=== PATIENT | male | born 1940 | race Caucasian/White ===

== ENCOUNTER 2018-09-24 00:14 | Outpatient (CLI) | payer MEDICARE, OTHER, SELFPAY ==
--- NOTE | 2018-09-24 08:57 | DI.CT_ITS ---
SYMPTOM/DIAGNOSIS: RECURRENT EPISTAXIS, S/P LT MAXILLARY SINUS SURGERY FOR DENTAL IMPLANT, ? POST SURGICAL COMPLICATION, R04.0, Z98.[address]: There is mild mucosal thickening of the floor of the right maxillary sinus and mild mucus retention at the floor of the left maxillary sinus. There is minimal ethmoid mucosal thickening. There are dental implants which create some artifact. The roots of a knik left upper molar tooth extend into the floor of the left maxillary sinus. The post of the adjacent tooth may also extend into the maxillary sinus. The post of a right upper tooth may also extend into the floor of the right maxillary sinus. No areas of bony destruction or air fluid levels are seen. The nasal septum is deviated toward the left. The orbits are unremarkable. The mastoid air cells appear clear. IMPRESSION: Mild maxillary sinus disease. A knik left upper molar tooth extends into the floor of the left maxillary sinus. The posts of two upper dental implants may also extend into the floors of the maxillary sinuses.
== END 2018-09-24 00:34 ==
PROVIDERS: PCP Internal Medicine; Visit Provider Physician Assistant
DX: R04.0 Epistaxis (principal); J32.0 Chronic maxillary sinusitis; Z98.890 Other specified postprocedural states
CPT/HCPCS: 70486

== ENCOUNTER 2018-12-01 12:41 | Outpatient (CLI) | payer MEDICARE, OTHER, SELFPAY ==
--- NOTE | 2018-12-01 14:42 | DI.RAD_ITS ---
SYMPTOMS/DIAGNOSIS: PERSISTENT COUGH, R05 CHEST X-RAY, PA AND LATERAL: Comparison is 10/01/14. The heart size and pulmonary vasculature are stable. There is unchanged scarring in the left mid lung. No focal consolidating infiltrates, effusions or pneumothoraces are identified. Age-appropriate degenerative changes are seen in the spine. IMPRESSION: No acute pulmonary process.
== END 2018-12-01 13:01 ==
PROVIDERS: PCP Internal Medicine; Visit Provider Nurse Practitioner
DX: R05 Cough (principal)
CPT/HCPCS: 71046

== ENCOUNTER 2018-12-21 00:54 | Outpatient (CLI) | payer MEDICARE, OTHER, SELFPAY ==
[2018-12-21] MEDS: Breeza Beverage 473 ML BTL PO ×2 (09:34→09:35)
[2018-12-21] MEDS: Omnipaque 350 MG/ML 50 ML BTL IJ (09:34)
[2018-12-21] MEDS: Omnipaque 350 MG/ML 100 ML BTL IJ (11:09)
--- NOTE | 2018-12-21 11:10 | DI.CT_ITS ---
SYMPTOMS/DIAGNOSIS: LEFT LOWER QUADRANT ABDOMINAL PAIN, R10.32 CT SCAN OF THE ABDOMEN AND PELVIS: CT scan of the abdomen and pelvis was performed following the uneventful administration of intravenous and oral contrast material. There are no priors for comparison. Linear scarring or atelectasis is seen in the lung bases. The heart appears to be mildly enlarged. The liver is normal in size. There are hepatic cysts present. No suspicious solid hepatic masses are seen. The portal, superior mesenteric and splenic veins are patent. The gallbladder is negative. There is no biliary ductal dilatation. The pancreas unremarkable. The spleen is unremarkable. No evidence of an adrenal mass is seen. The kidneys show normal and symmetric enhancement. No evidence of a solid renal mass or obstruction. The urinary bladder is intact. The prostate gland appears mildly enlarged and impinges upon the base of the urinary bladder. Atherosclerosis of the abdominal aorta is noted but no aneurysmal dilatation is seen. No significant abdominal or pelvic adenopathy, ascites or pneumoperitoneum is present. There do appear to be postsurgical changes of a right inguinal hernia repair. There does appear to be a fat-containing left inguinal hernia. Thee is diverticulosis of the sigmoid colon, but no evidence of acute diverticulitis. A normal appendix is visualized. No evidence of bowel obstruction or a bowel inflammatory or infectious process is seen. Degenerative changes are seen in the spine, particularly at the L4-5 and L5-S1 disc levels.. IMPRESSION: 1. No evidence of an acute abdomen. 2. Colonic diverticulosis but no evidence of acute diverticulitis.
== END 2018-12-21 01:14 ==
PROVIDERS: PCP Internal Medicine; Visit Provider Internal Medicine
DX: R10.32 Left lower quadrant pain (principal); K57.30 Diverticulosis of large intestine without perforation or abscess without bleeding; N40.0 Benign prostatic hyperplasia without lower urinary tract symptoms; K40.90 Unilateral inguinal hernia, without obstruction or gangrene, not specified as recurrent
CPT/HCPCS: 74177; J3490; Q9967

== ENCOUNTER 2019-02-12 08:45 | Outpatient (CLI) | payer MEDICARE, OTHER, SELFPAY ==
[2019-02-12 10:00] LABS: Bilirubin Negative (Negative); Blood Trace-intact (Negative); Clarity Clear; Glucose Negative (Negative); Ketones Negative (Negative); Leukocyte Esterase Negative (Negative); Nitrite Negative (Negative); Specific Gravity 1.025 (1.005-1.025); Urobilinogen 0.2 EU/dL (Up TO 0.2)
[2019-02-12 10:04] LABS: Absolute Basophil Count 0.03 k/cumm (0.0-0.2); Absolute Eosinophil Count 0.09 k/cumm (0.0-0.7); Absolute Lymphocyte Count 1.07 k/cumm (1.2-3.4); Absolute Monocyte Count 0.47 k/cumm (0.11-0.7); Absolute Neutrophil Count 2.52 k/cumm (1.2-6.7); Basophils % 0.7; Eosinophils % 2.2; HGB 13.1 g/dL (13.5-17.5); Lymphocytes % 25.6; Mean Corp. HGB Concentration 33.6 g/dL (32.0-36.0); Mean Corpuscular Hemoglobin 32.1 pg (27.0-33.0); Mean Corpuscular Volume 95.6 fL (80-95); Mean Platelet Volume 11.7 fL (8.0-11.0); Monocytes % 11.2; Neutrophils % 60.3; Platelet Count 198 x1000/uL (130-400); RBC 4.08 m/cumm (4.50-6.00); RBC Distribution Width 15.7 % (11.8-14.1); White Blood Cell Count 4.18 k/cumm (4.4-10.8)
[2019-02-12 10:11] LABS: Bacteria Negative HPF (Negative); Crystals Few Amorphous HPF (Negative); Epithelial Cells Few HPF (Negative); RBC 0-2 (0-2); WBC Negative HPF (0-5)
[2019-02-12 10:12] LABS: C & S Indicated? No; Casts Negative LPF (Negative); Mucus Trace (Negative)
[2019-02-12 11:18] LABS: ALT 25 U/L (12-78); AST 17 U/L (15-37); Albumin 3.6 g/dL (3.4-5.0); Alkaline Phosphatase 68 U/L (46-116); Anion Gap 9.6 mmol/L (3-11); BUN 21 mg/dL (7-18); Bilirubin, Total 0.9 mg/dL (0.2-1.0); CO2 28.4 mmol/L (21.0-32.0); CREATININE 0.88 mg/dL (0.70-1.30); Calcium 8.4 mg/dL (8.5-10.1); Chloride 104 mmol/L (98-107); Cholesterol 180 mg/dL (50-200); Glucose 109 mg/dL (70-100); HDL Cholesterol 79 mg/dL (40-60); Potassium 4.3 mmol/L (3.5-5.1); Sodium 142 mmol/L (136-145); TSH 1.65 uIU/mL (0.358-3.74); Total Protein 6.4 g/dL (6.4-8.2)
[2019-02-12 11:20] LABS: Triglyceride < 25 mg/dL (30-150)
[2019-02-14 05:32] LABS: Hemoglobin A1C 5.7 % (4.5-6.2)
[2019-02-14 08:09] LABS: Vitamin D 25 Total 24.9 ng/ml (30-100)
[2019-02-14 08:15] LABS: LDL CHOLESTEROL 90 mg/dL (<100)
== END 2019-02-12 09:05 ==
PROVIDERS: PCP Internal Medicine; Visit Provider Internal Medicine
DX: I10 Essential (primary) hypertension (principal); I48.0 Paroxysmal atrial fibrillation; E55.9 Vitamin D deficiency, unspecified; R73.01 Impaired fasting glucose
CPT/HCPCS: 36415; 80053; 80061; 82306; 83721; 81003; 81015; 83036; 84443; 85025

== ENCOUNTER 2019-02-16 10:19 | Outpatient (CLI) | payer MEDICARE, OTHER, SELFPAY ==
--- NOTE | 2019-02-16 10:32 | DI.RAD_ITS ---
SYMPTOMS/DIAGNOSIS: PAIN RIGHT KNEE: Three views. The articular surfaces appear well maintained. The bones are intact and normally mineralized. There is a small suprapatellar joint effusion. There is a short coiled wire seen in the soft tissues of the knee posteriorly. It is indeterminate whether this is on or within the skin. Please correlate with the patient's physical exam and/or surgical history. IMPRESSION: 1. Small joint effusion. 2. Tiny coiled wire projected over the soft tissues of the posterior knee.
== END 2019-02-16 10:39 ==
PROVIDERS: PCP Internal Medicine; Referring Provider Internal Medicine; Visit Provider Orthopaedic Surgery
DX: M25.561 Pain in right knee (principal); M25.462 Effusion, left knee; M79.5 Residual foreign body in soft tissue; M22.2X1 Patellofemoral disorders, right knee
CPT/HCPCS: 20610; 73562; 99213; 99214; J1040

== ENCOUNTER → 2019-03-31 10:50 | Outpatient (BNVA) | payer MEDICARE, OTHER, SELFPAY | PROVIDERS: Visit Provider Orthopaedic Surgery | DX: M23.91 Unspecified internal derangement of right knee (principal); M25.561 Pain in right knee; Z98.890 Other specified postprocedural states | CPT/HCPCS: 99213 ==

== ENCOUNTER 2019-04-06 01:02 | Outpatient (CLI) | payer MEDICARE, OTHER, SELFPAY ==
--- NOTE | 2019-04-06 14:40 | DI.MRI_ITS ---
SYMPTOM/DIAGNOSIS: INTERNAL DERANGEMENT, PAIN MRI RIGHT KNEE: Routine noncontrast examination was performed. The anterior cruciate ligament is intact. There is increased signal within the ligament and a sprain cannot be excluded. The posterior cruciate ligament is intact, and medial and lateral retinaculum, and popliteus tendon. The lateral meniscus is intact. There is increased signal seen in the posterior horn of the medial meniscus suspicious for a tear. There is thinning of the articular cartilage overlying the medial femoral condyle. There is marrow edema in the medial femoral condyle and a low intensity line paralleling the chondral surface consistent with an osteochondral fracture. There is also thinning of the articular cartilage overlying the patella with underlying marrow edema. There is a small to moderate size joint effusion. There is edema seen in the soft tissues. No focal fluid collection is seen. The muscles show normal signal and size. IMPRESSION: 1. Osteochondral fracture involving the medial femoral condyle 2. Chondromalacia patella 3. Findings suggestive of an ACL sprain and a tear vs degeneration involving the posterior horn of the medial meniscus 4. Small to moderate size joint effusion. Subcutaneous edema around the knee.
== END 2019-04-06 01:22 ==
PROVIDERS: PCP Internal Medicine; Visit Provider Orthopaedic Surgery
DX: M25.561 Pain in right knee (principal); M23.91 Unspecified internal derangement of right knee; M22.41 Chondromalacia patellae, right knee; M25.461 Effusion, right knee; S82.011A Displaced osteochondral fracture of right patella, initial encounter for closed fracture
CPT/HCPCS: 73721

== ENCOUNTER → 2019-04-07 11:47 | Outpatient (BNVA) | payer MEDICARE, OTHER, SELFPAY | PROVIDERS: PCP Internal Medicine; Visit Provider Orthopaedic Surgery | DX: M23.91 Unspecified internal derangement of right knee (principal); Z98.890 Other specified postprocedural states | CPT/HCPCS: 99213 ==

== ENCOUNTER → 2019-05-24 09:21 | Outpatient (BNVA) | payer MEDICARE, OTHER, SELFPAY | PROVIDERS: PCP Internal Medicine; Referring Provider Internal Medicine; Visit Provider Orthopaedic Surgery | DX: M23.91 Unspecified internal derangement of right knee (principal); Z79.01 Long term (current) use of anticoagulants | CPT/HCPCS: 99213 ==

== ENCOUNTER 2019-07-20 14:11 | Outpatient (CLI) | payer MEDICARE, OTHER, SELFPAY ==
--- NOTE | 2019-07-20 13:30 | HPE_ITS ---
Assessment and Plan Assessment and plan (1) Internal derangement of right knee: Status: Chronic Assessment and plan: Plan: Educated patient on surgery covering surgical technique, recovery process, benefits and risks including but not limited to risk of infection, blood clot, damage to soft tissue/blood vessels/nerves in detail. After discussion patient gives verbal understanding of risks and elects to proceed with scheduling surgery. Patient had opportunity to have questions answered to their satisfaction. They will contact office if issues arise. Patient will continue to be scheduled for right knee arthroscopy with medial mensicetomy with Dr. Tamayo. History of Present Illness Narrative: Mr. Decker is a 78-year-old male with pertinent past medical history of paroxysmal atrial fibrillation who presents to clinic for pre-operative visit for scheduled right knee arthroscopy with medial meniscectomy. Patient has been seen in orthopedic clinic several times for his right knee complaints. Previously patient received intra-articular injection on 02/16/2019 which provided significant pain relief for 2 weeks. Unfortunately, patient has had return of intermittent medial based right knee discomfort. As well as a swelling. Pain is most severe at night when it is a constant aching sensation. It is also aggravated when trying to carry any weight such as moving firewood, with prolonged driving, with any twisting motion or weightbearing and when going downhill. His pain is now more severe than it had been and has been giving out on him. Initially patient tried ice as well as applying Aspercreme which provided temporary pain relief. Since that time patient has been treating by restricting activity as well as taking ibuprofen 600 mg as needed. Denies any clicking, locking sensation, numbness or tingling. Due to his continued pain he was offered surgical intervention and elected to proceed. Pertinent Surgical Information Patient reports he has been diagnosed with paroxysmal atrial fibrillation for approximately a year and a half. At this time patient is on apixaban 5 mg twice daily for chronic anticoagulation. Denies any history of myocardial infarction, stroke, chest pain or recent palpitations. Denies past medical history of: stroke, angina, asthma, COPD, sleep apnea, renal issues, liver issues, hepatitis, gastrointestinal issues, ulcers, hyperlipidemia, bleeding disorders, seizures, anxiety, depression, diabetes, autoimmune disorders, thyroid issues Denies prior complications from surgery or anesthesia. Review of Systems Constitutional Constitutional: Denies fever(s), Denies frequent falls and Denies headache(s) Eyes Eyes: Reports change in vision (has been developing left cataract ) ENT Ears, Nose, Mouth, and Throat: Denies dizziness, Denies ear discharge, Denies headache(s), Denies epistaxis, Denies nasal discharge and Denies sore throat Cardiovascular Cardiovascular: Denies chest pain, Denies rapid heart rate, Reports irregular heart rhythm (history of afib; reports maybe 1-2 episodes over the past months), Denies palpitations, Denies dyspnea, Denies dyspnea on exertion, Denies orthopnea, Denies paroxysmal nocturnal dyspnea and Denies slow heart rate Respiratory Respiratory: Reports cough (dry cough for the past few months; denies any recent change), Denies dyspnea, Denies dyspnea on exertion and Denies wheezing Gastrointestinal Gastrointestinal: Denies abdominal pain, Denies melena, Denies hematochezia, Denies constipation, Denies diarrhea, Denies nausea and Denies vomiting Genitourinary Genitourinary: Denies hematuria, Denies dysuria and Denies urinary urgency Musculoskeletal Musculoskeletal: Reports as per HPI, Denies numbness and Denies tingling Neurologic Neurologic: Denies dizziness, Denies frequent falls, Denies headache(s), Denies numbness and Denies tingling Psychiatric Psychiatric: Denies anxiety and Denies depression Endocrine Endocrine: Denies palpitations Allergic/Immunologic Allergic/Immunologic: Denies wheezing [facility] Medical History (Updated 07/20/19 @ 13:39 by Rufina Yi) BPH (benign prostatic hyperplasia) (Chronic) Hypertension (Chronic) Migraine (Chronic) Paroxysmal atrial fibrillation (Chronic) Surgical History (Updated 07/20/19 @ 13:49 by Rufina Yi) Dupuytrens contracture (Acute) April 2015 Hemothorax on left (Acute) Laceration of right forearm (Acute) Left lateral epicondylitis (Acute) Rupture of right Achilles tendon (Acute) Status post hernia repair (Acute) bilateral inguinal repairs April 2015 Social History (Updated 07/20/19 @ 13:50 by Rufina Yi) Smoking/Tobacco Use Status: Never Drug use: Never Current gender identity: male Meds Home Medications and Allergies Home Medications Medication Instructions Recorded Confirmed Type amlodipine 5 mg PO DAILY 05/17/15 03/31/19 History finasteride 5 mg PO HS 05/17/15 02/16/19 History lisinopril 40 mg PO DAILY 05/17/15 03/31/19 History terazosin 5 mg PO HS 05/17/15 03/31/19 History ibuprofen 200 - 600 mg PO PRN PRN 07/27/15 03/31/19 History apixaban 5 mg tablet 5 mg PO BID 02/16/19 03/31/19 History ascorbic acid (vitamin C) 1,000 mg 1 gm PO DAILY tab 02/16/19 03/31/19 History tablet flecainide 150 mg tablet 300 mg PO ONCE PRN tab 02/16/19 03/31/19 History hydrochlorothiazide 12.5 mg tablet 12.5 mg PO DAILY 02/16/19 03/31/19 History metoprolol succinate 50 mg capsule 50 mg PO ONCE PRN dose pk 02/16/19 03/31/19 History sprinkle, ext. release 24 hr Allergies Allergy/AdvReac Type Severity Reaction Status Date / Time No Known Allergies Allergy Unverified 07/20/19 13:50 Exam Const General: cooperative and no acute distress [facility] Head: normal to inspection, normocephalic and atraumatic Ears: external ears normal General nose exam: external nose normal and no nasal discharge Face and sinus: face symmetric Mouth: oral mucosae normal, lip normal, tongue normal and moist mucous membranes Teeth and gingiva: dentition normal Throat: posterior oropharynx normal Eyes General: appearance normal, both eyes and all related structures Pupils: PERRL EOM: EOM intact bilaterally Neck Neck: trachea midline Carotids: normal carotid upstroke Lymphatic: no lymphadenopathy noted Resp Effort & Inspection: normal respiratory effort and able to speak in complete sentences Auscultation: clear to auscultation bilaterally, no rales, no rhonchi and no wheezes Cardio Heart Sounds: S1 normal, S2 normal and no murmurs Pulses: radial pulses present bilaterally GI Palpation: soft, no hepatosplenomegaly and nontender Auscultation: normal bowel sounds Skin General skin exam: no rashes or lesions noted
== END 2019-07-20 14:31 ==
PROVIDERS: PCP Internal Medicine; Visit Provider Orthopaedic Surgery
DX: M23.91 Unspecified internal derangement of right knee (principal); Z01.818 Encounter for other preprocedural examination; I10 Essential (primary) hypertension; I48.0 Paroxysmal atrial fibrillation; Z79.01 Long term (current) use of anticoagulants
CPT/HCPCS: NC

== ENCOUNTER 2019-08-15 07:23 | Day surgery (SDC) | payer MEDICARE, OTHER, SELFPAY ==
[2019-08-15] VITALS (8 sets, daily range): BP systolic 116–151; BP diastolic 59–76; PULSE 52–62; RESP 13–20; TEMP 36.3–36.6; O2SAT 93–97
[2019-08-15] MEDS: Lactated Ringers 1,000 ML 80 ML IV (08:10)
[2019-08-15] MEDS: ceFAZolin 2,000 MG in Normal Saline 100 ML 200 MG IVPB (08:47)
[2019-08-15] MEDS: Bupivacaine 0.5% Pres-Free 30 ML VIAL (09:46)
--- NOTE | 2019-08-15 09:57 | W.PM.DSUDISC ---
Discharge Plan Disposition Patient Disposition: HOME Condition: Good Discharge Details Reason For Visit: Arthroscopy R knee Attending Provider: Chance Tamayo Primary Care Provider: Kenny Vee Home Meds and New Rx's Prescriptions: New hydrocodone-acetaminophen 5-325 mg tablet 1 tab PO Q6H PRN (Reason: pain) Qty: 14 RF: 0 No Action hydrochlorothiazide 12.5 mg tablet 12.5 mg PO DAILY RF: 0 Eliquis 5 mg tablet 5 mg PO BID RF: 0 ascorbic acid (vitamin C) 1,000 mg tablet 1 gm PO DAILY RF: 0 flecainide 150 mg tablet 300 mg PO ONCE PRNRF: 0 metoprolol succinate 50 mg cap,sprinkle,ER 24hr dose pack 50 mg PO ONCE PRNRF: 0 terazosin 5 MG capsule 5 mg PO HS RF: 0 amlodipine 5 MG tablet 5 mg PO DAILY RF: 0 lisinopril 40 MG tablet 40 mg PO DAILY RF: 0 finasteride 5 MG tablet 5 mg PO HS RF: 0 ibuprofen 200 MG tablet 200 - 600 mg PO PRN PRNRF: 0 Discharge Instructions Additional Instructions: Crutches to walk. May put as much weight on R leg as your pain allows. Discontinue crutches when you can step on R leg with minimal pain. Apply cryocuff to R knee continuously overnite tonite. Tomorrow, start to use 4 times/day for 1 hour each time. Keep dressings dry for 48 hours. After 48 hours, may remove dressings, shower and get incisions wet. Leave incisions uncovered when they are dry and sealed. Outpatient physical therapy on Th or Thu for rehab R knee post-arthroscopic partial medial meniscectomy. Take 600 mg (3 tabs of 200 mg) 3 times/day for 2 weeks to reduce swelling and inflammation. Take hydrocodone for breakthru pain, if needed. Follow up with in 2 weeks. Referrals: Chance Tamayo MD [ [facility] STAFF PHYSICIAN] - (f/u in 2 weeks.) Equipment/Supplies: Partial Weight Bearing Crutches Activity:: Activity as Tolerated Remove Dressings/Wound Care:: 48 hours Shower/Bathe:: 48 hours Diet:: As Tolerated Discharge Orders Discharge Orders: Discharge Order (Routine); Ordered 08/15/19 Ordered By: Chance Tamayo DS: Diagnosis Discharge Diagnosis (1) Internal derangement of right knee: Status: Chronic
--- NOTE | 2019-08-15 15:48 | ROE_ITS ---
DATE OF PROCEDURE: August 15, 2019 PREOPERATIVE DIAGNOSIS: Internal derangement, right knee. POSTOPERATIVE DIAGNOSIS: Same due to a torn medial meniscus and synovitis. He also had some mild DJ D of the medial compartment. PROCEDURE: Arthroscopy of the right knee with partial right medial meniscectomy; limited synovectomy and limited chondroplasty of the medial femoral condyle. ANESTHESIA: General, Ezra Weaver CRNA SURGEON: Chance Tamayo M.D. INDICATIONS: This is a 78-year-old white male who has been bothered by right knee pain for over a ye ars' time. This has been managed conservatively. After considerable improvement in his knee, he reg ressed and was bothered by continued pain, mostly on the medial side of his knee. This was interferi ng with his leisure activities initially. It then began to interfere with his activities of daily li ving. Arthroscopy was then recommended to alleviate his symptoms on a more permanent basis. The ris ks and complications of the procedure were explained to the patient in detail preoperatively. PROCEDURE: The patient was taken to the Operating Room on 08/15/19. He was placed supine on the oper ating table and a general anesthetic was administered. The right thigh was placed in the arthroscopi c leg henry and the right knee was then prepped and draped free in the usual sterile fashion. Arthr oscopic portals were established. The knee was inflated with normal saline solution using the arthro scopy pump and then routine arthroscopic examination proceeded. Intraoperative photographs were obta ined to document pertinent findings. Upon entering the medial compartment he was noted to have a degenerative tear of the posterior horn o f the medial meniscus. It was somewhat unstable in that I could displace the fragment anteriorly usi ng a right-angle nerve hook. The amount of meniscus involved was probably less than a third of the m eniscus. There was evidence of some grade 2 OA on the medial femoral condyle; grade 1 OA on the tibi al plateau. Using a high radio frequency electrocautery wand, I debrided and resected the torn porti on of the medial meniscus. I then used the high radio frequency electrocautery wand to perform a lebron ited chondroplasty and excise loose articular cartilage from the medial femoral condyle. I smoothed and contoured the condyle as well. The patient had moderate synovitis in his knee and the high radio frequency electrocautery wand was t hen used to debride the hyperemic and hypertrophic synovium from the intercondylar notch, the medial gutter, the suprapatellar pouch and the lateral gutter. The lateral compartment showed a normal lateral meniscus that was stable to probing with the right-an gle probe. The articular cartilage in the lateral compartment was undamaged and normal in appearance . The patellofemoral joint showed some grade 1 OA of the patella. The patella was tracking well and ce ntered in the trochlea of the femur. At this point the knee was copiously irrigated with saline solu tion using the arthroscopy pump until the outflow was clear. I then instilled into the right knee 20 cc's of 0.5% Marcaine solution along with 4 mg of morphine. The arthroscopy portals were infiltrate d with 0.5% Marcaine solution and were approximated with interrupted #4-0 nylon sutures. Sterile samuel ssings were applied, followed by a light compressive dressing to the right knee. The patient's anest hesia was reversed without complications. He was discharged to recovery in good condition. The patient was later discharged from the Day Surgery Unit when fully recovered from his general anes thesia. He was given instructions to use crutches to walk, weightbearing as tolerated to the right l eg. He may discontinue the crutches as soon as he can step fully on the right leg without pain. He is to apply a CryoCuff to the right knee continuously overnight. Tomorrow he will start to use the C ryoCuff four times a day for an hour each time. He may remove his dressings, shower and get his inci sions wet after 48 hours. He can leave his incisions uncovered when they are dry and sealed. He miriam l take ibuprofen 600 mg p.o. t.i.d. for two weeks to help decrease swelling and inflammation. He was given a prescription for breakthrough pain of Hydrocodone with APAP 5/325, one tablet every six hour s, if needed. He will begin outpatient physical therapy on or Thursday to rehab his right kne e post arthroscopic partial medial meniscectomy. He will follow-up with me in two weeks.
== END 2019-08-15 13:05 | disposition home or self-care (01) ==
PROVIDERS: PCP Internal Medicine; Visit Provider Orthopaedic Surgery
PROC: (CPT 29870; principal; 2019-08-15 08:15)
DX: M23.221 Derangement of posterior horn of medial meniscus due to old tear or injury, right knee (principal); M17.11 Unilateral primary osteoarthritis, right knee; M65.9 Synovitis and tenosynovitis, unspecified; I10 Essential (primary) hypertension
CPT/HCPCS: 29881; J0690; J1100; J1885; J2405

== ENCOUNTER → 2019-08-30 09:09 | Outpatient (BNVA) | payer MEDICARE, OTHER, SELFPAY | PROVIDERS: PCP Internal Medicine; Referring Provider Internal Medicine; Visit Provider Orthopaedic Surgery | DX: Z47.89 Encounter for other orthopedic aftercare (principal); M23.91 Unspecified internal derangement of right knee; I10 Essential (primary) hypertension ==

== ENCOUNTER 2020-02-16 03:30 | Outpatient (CLI) | payer MEDICARE, OTHER, SELFPAY ==
[2020-02-16 14:14] LABS: Absolute Basophil Count 0.03 k/cumm (0.0-0.2); Absolute Eosinophil Count 0.07 k/cumm (0.0-0.7); Absolute Lymphocyte Count 1.21 k/cumm (1.2-3.4); Absolute Monocyte Count 0.58 k/cumm (0.11-0.7); Absolute Neutrophil Count 3.72 k/cumm (1.2-6.7); Basophils % 0.5; Eosinophils % 1.2; HCT 38.5 % (40.0-50.0); Lymphocytes % 21.6; Mean Corp. HGB Concentration 33.8 g/dL (32.0-36.0); Mean Corpuscular Hemoglobin 33.4 pg (27.0-33.0); Mean Platelet Volume 10.8 fL (8.0-11.0); Monocytes % 10.3; Neutrophils % 66.4; Platelet Count 207 x1000/uL (130-400); RBC 3.89 m/cumm (4.50-6.00); RBC Distribution Width 13.7 % (11.8-14.1); White Blood Cell Count 5.61 k/cumm (4.4-10.8)
[2020-02-16 14:17] LABS: Bilirubin Negative (Negative); Blood Small (Negative); Clarity Clear (Clear); Glucose Negative (Negative); Ketones Negative (Negative); Leukocyte Esterase Negative (Negative); Nitrite Negative (Negative); Specific Gravity 1.025 (1.005-1.025); Urobilinogen 0.2 EU/dL (Up TO 0.2)
[2020-02-16 14:31] LABS: Hemoglobin A1C 5.5 % (3.8-5.6)
[2020-02-16 14:32] LABS: Bacteria Few HPF (Negative); C & S Indicated? No; Casts Negative LPF (Negative); Crystals Negative HPF (Negative); Epithelial Cells Rare HPF (Negative); Mucus Moderate (Negative); RBC 0-2 HPF (0-2); WBC 0-2 HPF (0-5)
[2020-02-16 15:19] LABS: ALT 38 U/L (16-63); AST 23 U/L (15-37); Albumin 3.7 g/dL (3.4-5.0); Alkaline Phosphatase 60 U/L (46-116); Anion Gap 5.4 mmol/L (3-11); BUN 18 mg/dL (7-18); CO2 30.6 mmol/L (21.0-32.0); CREATININE 0.85 mg/dL (0.70-1.30); Calcium 8.8 mg/dL (8.5-10.1); Chloride 107 mmol/L (98-107); Cholesterol 173 mg/dL (<200); Glucose 103 mg/dL (74-106); HDL Cholesterol 83 mg/dL (40-60); Potassium 3.9 mmol/L (3.5-5.1); Sodium 143 mmol/L (136-145); TSH 1.11 uIU/mL (0.36-3.74); Total Protein 6.3 g/dL (6.4-8.2)
[2020-02-16 15:20] LABS: Triglyceride < 25 mg/dL (<150)
[2020-02-16 15:30] LABS: LDL CHOLESTEROL 82 mg/dL (<100)
[2020-02-16 15:32] LABS: Vitamin D 25 Total 18.8 ng/ml (30-100)
[2020-02-20 14:49] LABS: Lyme Ab w Rflx to Lyme Confirm Negative (Negative)
== END 2020-02-16 03:50 ==
PROVIDERS: PCP Internal Medicine; Visit Provider Internal Medicine
DX: I10 Essential (primary) hypertension (principal); R73.01 Impaired fasting glucose; E55.9 Vitamin D deficiency, unspecified; M25.50 Pain in unspecified joint; I48.0 Paroxysmal atrial fibrillation
CPT/HCPCS: 36415; 80053; 80061; 82306; 83721; 81003; 81015; 83036; 84443; 85025; 86618

== ENCOUNTER 2020-04-04 12:16 | Outpatient (CLI) | payer MEDICARE, OTHER, SELFPAY ==
--- NOTE | 2020-04-04 12:00 | DI.RAD_ITS ---
EXAM: XR TIB/FIB RT CLINICAL HISTORY: right lower leg muscle atrophy. TECHNIQUE: 2D digital imaging was performed. COMPARISON: No exams were available for comparison FINDINGS: BONES: No acute fracture is present. No bony destructive lesion is seen. Visualized portion of knee a nd ankle joints are unremarkable. SOFT TISSUE: Normal. IMPRESSION: Unremarkable radiographs of the right tibia and fibula. DATA REPOSITORY: RADIATION DOSE DELIVERED:
== END 2020-04-04 12:36 ==
PROVIDERS: PCP Internal Medicine; Referring Provider Internal Medicine; Visit Provider Orthopaedic Surgery
DX: M62.561 Muscle wasting and atrophy, not elsewhere classified, right lower leg (principal); M17.11 Unilateral primary osteoarthritis, right knee; I10 Essential (primary) hypertension
CPT/HCPCS: 99213; 73590

== ENCOUNTER 2020-04-16 01:19 | Outpatient (CLI) | payer MEDICARE, OTHER, SELFPAY ==
--- NOTE | 2020-04-16 06:30 | DI.MRI_ITS ---
EXAM: MR LOWER EXTREMITY RT WO/W CLINICAL HISTORY: muscle atrophy,M62.561. TECHNIQUE: Multiplanar multisequence MRI was performed. FINDINGS: MR examination of proximal half of the leg was performed utilizing multi planer imaging including pre and post contrast T1 fat sat imaging. There are bony signal abnormalities seen of the proximal tibia which appear to be associated with deg enerative changes of the knee. The knee joint is incompletely seen at the margin of the imaging fiel d. No other significant bony signal abnormality is seen in the proximal leg. There is minimally increased signal in the gastrocnemius muscles medially and laterally which is nons pecific. No focal area of increased muscular signal abnormality seen. No fatty replacement of muscu lature of proximal leg. No mass lesion identified. No evidence of enhancement associated with the r egion marked on the lateral aspect of the leg posteriorly. IMPRESSION: Negative MR examination of the proximal leg, degenerative changes of the joints of the knee noted. DATA REPOSITORY:
[2020-04-16] MEDS: Normal Saline Flush 10 ML SYR IVP (10:01)
[2020-04-16] MEDS: Gadoterate meglumine 20 ML VIAL 15 ML IVP (10:02)
== END 2020-04-16 01:39 ==
PROVIDERS: PCP Internal Medicine; Visit Provider Physician Assistant Surgical
DX: M62.561 Muscle wasting and atrophy, not elsewhere classified, right lower leg (principal); M17.11 Unilateral primary osteoarthritis, right knee
CPT/HCPCS: 73720

== ENCOUNTER → 2020-04-24 09:06 | Outpatient (BNVA) | payer MEDICARE, OTHER, SELFPAY | PROVIDERS: PCP Internal Medicine; Referring Provider Internal Medicine; Visit Provider Orthopaedic Surgery | DX: M62.561 Muscle wasting and atrophy, not elsewhere classified, right lower leg (principal); M72.2 Plantar fascial fibromatosis | CPT/HCPCS: 99214 ==

== ENCOUNTER 2020-08-02 10:15 | Outpatient (CLI) | payer MEDICARE, OTHER, SELFPAY ==
--- NOTE | 2020-08-02 09:30 | DI.RAD_ITS ---
EXAM: XR KNEE RT 2V AP,LAT CLINICAL HISTORY: R knee pain. TECHNIQUE: 2D digital imaging was performed. COMPARISON: CR XR knee LT 3V AP,lat,danny from 02/16/2019 FINDINGS: BONES: No acute fracture is present. No bony destructive lesion is seen. There is a small enthesophyt e at the superior patella. JOINTS: There is moderate narrowing of the medial femoral tibial joint space. There is a small joint effusion. Small spurs are seen at the posterior patella. SOFT TISSUE: Normal. IMPRESSION: Mild osteoarthritis of the right knee. Small joint effusion. DATA REPOSITORY: RADIATION DOSE DELIVERED:
== END 2020-08-02 10:35 ==
PROVIDERS: PCP Internal Medicine; Referring Provider Internal Medicine; Visit Provider Orthopaedic Surgery
DX: M17.11 Unilateral primary osteoarthritis, right knee (principal); I10 Essential (primary) hypertension
CPT/HCPCS: 20610; 99213; 73560; J1040

== ENCOUNTER 2020-12-28 02:12 | Outpatient (CLI) | payer MEDICARE, OTHER, SELFPAY ==
[2020-12-28 07:30] LABS: Abs Immature Grans 0.02 10^3/uL (0.0-0.06); Absolute Basophil Count 0.05 10^3/uL (0.0-0.2); Absolute Eosinophil Count 0.09 10^3/uL (0.0-0.7); Absolute Lymphocyte Count 1.02 10^3/uL (1.2-3.4); Absolute Monocyte Count 0.62 10^3/uL (0.1-0.8); Absolute Neutrophil Count 3.54 10^3/uL (1.2-6.7); Basophils % 0.9; Eosinophils % 1.7; HCT 39.3 % (40.0-50.0); HGB 13.3 g/dL (13.5-17.5); Immature Grans % 0.4; Lymphocytes % 19.1; MCHC 33.8 % (32.0-36.0); MCV 100.5 fL (80-95); MPV 10.7 fL (8.0-11.0); Monocytes % 11.6; Neutrophils % 66.3; Nucleated RBC 0 %; Platelet Count 183 10^3/uL (130-400); RBC 3.91 10^6/uL (4.36-5.78); RDW 12.9 % (11.8-14.1); RDW-SD 47.4 fL; WBC 5.34 10^3/uL (4.4-10.8)
[2020-12-28 07:36] LABS: Bilirubin Negative (Negative); Blood Trace-lysed (Negative); Clarity Clear (Clear); Glucose Negative (Negative); Ketones Trace mg/dL (Negative); Leukocyte Esterase Negative (Negative); Nitrite Negative (Negative); Specific Gravity 1.025 (1.005-1.025); Urobilinogen 0.2 EU/dL (Up TO 0.2)
[2020-12-28 07:37] LABS: Hemoglobin A1C 5.4 % (<5.7)
[2020-12-28 08:06] LABS: Bacteria Negative HPF (Negative); C & S Indicated? No; Casts Negative LPF (Negative); Crystals Rare Amorphous HPF (Negative); Epithelial Cells Rare HPF (Negative); Mucus Negative (Negative); WBC 0-2 HPF (0-5)
[2020-12-28 08:34] LABS: ALT 34 U/L (16-63); AST 20 U/L (15-37); Albumin 3.6 g/dL (3.4-5.0); Alkaline Phosphatase 64 U/L (46-116); Anion Gap 5.6 mmol/L (3-11); BUN 13 mg/dL (7-18); Bilirubin, Total 0.8 mg/dL (0.2-1.0); CO2 31.4 mmol/L (21.0-32.0); CREATININE 0.8 mg/dL (0.70-1.30); Calcium 8.5 mg/dL (8.5-10.1); Chloride 107 mmol/L (98-107); Cholesterol 168 mg/dL (<200); Glucose 106 mg/dL (74-106); HDL Cholesterol 86 mg/dL (40-60); Potassium 4.5 mmol/L (3.5-5.1); Sodium 144 mmol/L (136-145); TSH 1.81 uIU/mL (0.36-3.74); Total Protein 6.2 g/dL (6.4-8.2)
[2020-12-28 08:51] LABS: Triglyceride < 25 mg/dL (<150)
[2020-12-28 09:01] LABS: LDL CHOLESTEROL 72 mg/dL (<100)
[2020-12-31 04:59] LABS: Vitamin D 25 Total 29.4 ng/mL (30-100)
== END 2020-12-28 02:13 | disposition home or self-care (01) ==
LOC: LBO 02:13
PROVIDERS: PCP Internal Medicine; Visit Provider Internal Medicine
DX: I10 Essential (primary) hypertension (principal); E55.9 Vitamin D deficiency, unspecified; R73.01 Impaired fasting glucose; I48.0 Paroxysmal atrial fibrillation
CPT/HCPCS: 36415; 80053; 80061; 82306; 83721; 81003; 81015; 83036; 84443; 85025

== ENCOUNTER 2021-06-26 04:09 | Outpatient (CLI) | payer MEDICARE, OTHER, SELFPAY ==
[2021-06-26 09:22] LABS: Abs Immature Grans 0.01 10^3/uL (0.0-0.06); Absolute Basophil Count 0.05 10^3/uL (0.0-0.2); Absolute Eosinophil Count 0.06 10^3/uL (0.0-0.7); Absolute Lymphocyte Count 1.14 10^3/uL (1.2-3.4); Absolute Monocyte Count 0.52 10^3/uL (0.1-0.8); Absolute Neutrophil Count 2.43 10^3/uL (1.2-6.7); Basophils % 1.2; Eosinophils % 1.4; HCT 39.8 % (40.0-50.0); HGB 13.3 g/dL (13.5-17.5); Immature Grans % 0.2; Lymphocytes % 27.1; MCH 33.3 pg (27.0-33.0); MCHC 33.4 % (32.0-36.0); MCV 99.7 fL (80-95); MPV 10.9 fL (8.0-11.0); Monocytes % 12.4; Neutrophils % 57.7; Nucleated RBC 0 %; Platelet Count 187 10^3/uL (130-400); RBC 3.99 10^6/uL (4.36-5.78); RDW 12.9 % (11.8-14.1); RDW-SD 48.1 fL; WBC 4.21 10^3/uL (4.4-10.8)
[2021-06-26 10:17] LABS: Bilirubin Negative (Negative); Blood Trace-intact (Negative); Clarity Clear (Clear); Glucose Negative (Negative); Ketones Negative (Negative); Leukocyte Esterase Negative (Negative); Nitrite Negative (Negative); Specific Gravity 1.025 (1.005-1.025); Urobilinogen 0.2 EU/dL (Up TO 0.2)
[2021-06-26 10:26] LABS: Bacteria Negative HPF (Negative); C & S Indicated? No; Casts Negative LPF (Negative); Crystals Negative HPF (Negative); Epithelial Cells Rare HPF (Negative); Mucus Trace (Negative); WBC Negative HPF (0-5)
[2021-06-26 10:44] LABS: ALT 31 U/L (16-63); AST 19 U/L (15-37); Albumin 3.6 g/dL (3.4-5.0); Alkaline Phosphatase 60 U/L (46-116); Anion Gap 7.6 mmol/L (3-11); BUN 16 mg/dL (7-18); Bilirubin, Total 0.8 mg/dL (0.2-1.0); CO2 29.4 mmol/L (21.0-32.0); CREATININE 0.8 mg/dL (0.70-1.30); Calcium 8.5 mg/dL (8.5-10.1); Calculated LDL 98 mg/dL (<100); Chloride 106 mmol/L (98-107); Cholesterol 184 mg/dL (<200); Glucose 93 mg/dL (74-106); HDL Cholesterol 81 mg/dL (40-60); Potassium 4.1 mmol/L (3.5-5.1); Sodium 143 mmol/L (136-145); TSH 1.49 uIU/mL (0.36-3.74); Total Protein 6.3 g/dL (6.4-8.2); Triglyceride 28 mg/dL (<150)
[2021-06-26 11:11] LABS: Hemoglobin A1C 5.6 % (<5.7)
[2021-06-27 04:52] LABS: Vitamin D 25 Total 31.8 ng/mL (30-100)
== END 2021-06-26 04:10 | disposition home or self-care (01) ==
LOC: LBO 04:09
PROVIDERS: PCP Internal Medicine; Visit Provider Internal Medicine
DX: I48.0 Paroxysmal atrial fibrillation (principal); R73.01 Impaired fasting glucose; E55.9 Vitamin D deficiency, unspecified; I10 Essential (primary) hypertension
CPT/HCPCS: 36415; 80053; 80061; 82306; 81003; 81015; 83036; 84443; 85025

== ENCOUNTER 2021-09-17 13:50 | Emergency (ER) | payer MEDICARE, OTHER, SELFPAY ==
[2021-09-17] VITALS (21 sets, daily range): BP systolic 115–139; BP diastolic 60–79; PULSE 57–79; RESP 13–23; TEMP 36.3–36.7; O2SAT 95–98
--- NOTE | 2021-09-17 14:00 | RT.EKG_ITS ---
APPROVED REPORT Exam: Resting ECG Reason for Exam: chest pain Patient Location: E HR:73 bpm ECG Measurements Heart Rate 73 AXIS OH 66 P 0 QRSd 111 QRS 87 QT 433 T -23 QTc 477 Conclusion Sinus rhythm...normal P axis, V-rate 60- 99 Supraventricular bigeminy...bigeminy string>4 w/ SV complexes Low voltage, extremity leads...all extremity leads <0.5mV Physician: Rate 73, intervals normal, sinus rhythm, supraventricular bigeminy, no STEMI. Q wave is p resent in lead III, inverted T wave is present in lead III, slightly broad S wave in lead I
--- NOTE | 2021-09-17 14:06 | ED.GENADUL_ITS ---
Discharge Plan Disposition Patient Disposition: HOME Condition: Good Discharge Details Clinical Impression: Community acquired pneumonia Primary Care Provider: Kenny Vee ED Provider: Jose Schmitt Home Meds and New Rx's Prescriptions: Continued cholecalciferol (vitamin D3) 25 mcg (1,000 unit) capsule 25 mcg PO DAILY RF: 0 hydrochlorothiazide 12.5 mg tablet 12.5 mg PO DAILY RF: 0 Eliquis 5 mg tablet 5 mg PO BID RF: 0 ascorbic acid (vitamin C) 1,000 mg tablet 1 gm PO DAILY RF: 0 flecainide 150 mg tablet 300 mg PO ONCE PRNRF: 0 metoprolol succinate 50 mg cap,sprinkle,ER 24hr dose pack 50 mg PO ONCE PRNRF: 0 terazosin 5 MG capsule 5 mg PO HS RF: 0 amlodipine 5 MG tablet 5 mg PO DAILY RF: 0 lisinopril 40 MG tablet 40 mg PO DAILY RF: 0 finasteride 5 MG tablet 5 mg PO HS RF: 0 ibuprofen 200 MG tablet 200 - 600 mg PO PRN PRNRF: 0 Discharge Instructions Instructions: Community Acquired Pneumonia (ED) Additional Instructions: At this time you have evidence of mild pneumonia. Please take the antibiotic as directed, please continue the incentive spirometer, and the deep breathing that you are doing. The antibiotic is been sent to your pharmacy. If you notice any worsening of your symptoms, or any new symptoms such as vomiting, diarrhea, fever, chills, shortness of breath, chest pain, numbness, weakness, or fainting , please return immediately to the emergency department for reevaluation. Please follow up with your primary care provider as soon as possible for reassessment and reevaluation. As always, it was a pleasure participating in your medical care today. Referrals: Kenny Vee [Primary Care Provider] - Medical Decision Making This is a 81-year-old male with a past medical history of previous paroxysmal A. fib which is since resolved, hypertension, BPH, who is currently on apixaban, who presents today for evaluation of cough, shortness of breath, fatigue, for the last 4 days. He denies any hemoptysis, pleuritic chest pain, or significant chest pain or chest tightness. He has been monitoring his oxygen and states that his O2 levels get down into the high 80s when he is ambulating, but otherwise remains normal at rest. He does state that his daughter who is living with him who has immunodeficient comorbidities has had a notably nasty virus recently, but this was negative for Covid. Curiosity history of blood clot or coronary artery disease. He has been vaccinated and posted against Covid. No other complaints. No other modifying factors Exam demonstrates a well-appearing male, appearing slightly fatigued, with stable vital signs. Lung sounds are clear. Differential includes Covid, mild viral illness, pneumonia less likely PE or ACS. We will do an ambulatory pulse ox, evaluate for these concerning abnormalities, monitor closely and reassess. Patient does have S1Q3T3, we will get a D-dimer, as well as a proBNP for evaluation of heart strain 5:16 PM Patient's laboratory work-up has returned, no significant white count, D-dimer is elevated, CTA was ordered which shows evidence of small effusions and bilateral mild infiltrate. Covid test was negative, VBG was stable. Electrolytes stable. Troponin EKG stable. No evidence of pulmonary embolism on CT. Thyroid function good. Patient's oxygenation remained excellent here. Ambulatory pulse ox demonstrated no hypoxemia. Patient feels well and would like to go home. We will start the patient on doxycycline for community- acquired pneumonia. We will give him a prescription for home, as well as a small bottle of pills to hold him over until the prescriptions filled. At this time patient is stable for discharge. Discussed red flags which to return. I have extensively reviewed the treatment plan and discharge instructions with the patient. I have addressed all patient concerns at this time. The patient was made aware of what symptoms to monitor for that would warrant a return to the emergency department. Discussed the plan with the patient, they demonstrate verbal understanding and agreement with our assessment and plan at this time. The documentation in this chart was dictated using [employer] dictation software. Please excuse any dictation errors. EKG 14: 12 Rate 73, intervals normal, sinus rhythm, supraventricular bigeminy, no STEMI. Q wave is present in lead III, inverted T wave is present in lead III, slightly broad S wave in lead I FINDINGS: Tracheobronchial tree: Patent where visualized. Pulmonary parenchyma: There are small bilateral pleural effusions and subjacent infiltrates. These infiltrates may represent atelectasis or pneumonia. No architectural distortion. Pulmonary Arteries: No evidence of filling defect to suggest pulmonary emboli. Mediastinum and Delores: Non-specific mildly enlarged mediastinal lymph nodes. The esophagus is unremarkable. Visualized thyroid gland: Unremarkable. Pleura: Please see above. No pneumothorax. Heart: Cardiomegaly. No coronary artery calcifications are seen. No pericardial effusion. Aorta: Thoracic aorta non-dilated. No evidence of dissection. Atherosclerosis. Upper abdomen: Unremarkable. Soft tissues: Unremarkable. Bones: Within normal limits for the patient's age.Old left rib fractures are present. IMPRESSION: 1. No evidence of pulmonary embolism, thoracic aortic dissection or aneurysm. 2. Small bilateral pleural effusions and subjacent infiltrates. 3. Results of this exam have been verbally communicated with provider. HPI General Date/Time Provider Initiated Documentation: 09/17/21 13:51 . HPI Narrative: This is a 81-year-old male with a past medical history of previous paroxysmal A. fib which is since resolved, hypertension, BPH, who is currently on apixaban, who presents today for evaluation of cough, shortness of breath, fatigue, for the last 4 days. He denies any hemoptysis, pleuritic chest pain, or significant chest pain or chest tightness. He has been monitoring his oxygen and states that his O2 levels get down into the high 80s when he is ambulating, but otherwise remains normal at rest. He does state that his daughter who is living with him who has immunodeficient comorbidities has had a notably nasty virus recently, but this was negative for Covid. Curiosity history of blood clot or coronary artery disease. He has been vaccinated and posted against Covid. No other complaints. No other modifying factors Related Data Home Medications Medication Instructions Recorded Confirmed amlodipine 5 mg PO DAILY 05/17/15 09/17/21 finasteride 5 mg PO HS 05/17/15 09/17/21 lisinopril 40 mg PO DAILY 05/17/15 09/17/21 terazosin 5 mg PO HS 05/17/15 09/17/21 ibuprofen 200 - 600 mg PO PRN PRN 07/27/15 09/17/21 apixaban 5 mg tablet 5 mg PO BID 02/16/19 09/17/21 ascorbic acid (vitamin C) 1,000 mg 1 gm PO DAILY tab 02/16/19 09/17/21 tablet flecainide 150 mg tablet 300 mg PO ONCE PRN tab 02/16/19 09/17/21 hydrochlorothiazide 12.5 mg tablet 12.5 mg PO DAILY 02/16/19 09/17/21 metoprolol succinate 50 mg capsule 50 mg PO ONCE PRN dose pk 02/16/19 09/17/21 sprinkle, ext. release 24 hr cholecalciferol (vitamin D3) 25 25 mcg PO DAILY 04/24/20 09/17/21 mcg (1,000 unit) capsule Allergies Allergy/AdvReac Type Severity Reaction Status Date / Time No Known Allergies Allergy Unverified 09/17/21 14:02 General Stated Complaint: RespSymp EYAD: 2 Review of Systems All systems reviewed & are unremarkable except as noted in HPI and below PFSH All Active Problems (Updated 09/17/21 @ 17:13 by Jose Schmitt DO) Community acquired pneumonia (Acute) Plantar fasciitis of left foot (Acute) Right knee DJD (Acute) Muscle wasting and atrophy, not elsewhere classified, right lower leg (Acute) Internal derangement of right knee (Chronic) Migraine (Chronic) BPH (benign prostatic hyperplasia) (Chronic) Hypertension (Chronic) Paroxysmal atrial fibrillation (Chronic) Medical History Hx of fracture of clavicle left Surgical History Dupuytrens contracture April 2015 Hemothorax on left Laceration of right forearm Left lateral epicondylitis Rupture of right Achilles tendon Status post hernia repair bilateral inguinal repairs April 2015 Social History Smoking/Tobacco Use Status: Never Smoking risk assessment performed?: Yes Alcohol Intake: current Alcohol Intake frequency: 0-2 drinks per day Alcohol type: beer and wine Drug use: Never Substance use type: does not use Details: alcohol: t-1, one glass wine Current gender identity: male Do you feel safe at home: Yes Do you feel safe in your relationship?: Yes Exam Narrative Exam Narrative: 1.Const: Well-nourished, Well-developed, appearing stated age 2.Eyes: PERRL, no conjunctival injection, and symmetrical lids. 3.ENT: Atraumatic external nose and ears. Moist MM. Neck: Symmetric, trachea midline, No thyromegaly. 4.CVS: +S1/S2, No murmurs or gallops. Peripheral pulses 2+ and equal in all extremities. Brisk capillary refill in all extremities. 5.RESP: Unlabored respiratory effort. Clear to auscultation bilaterally. No wheezes rales or rhonchi 6.GI: Soft, Nontender/Nondistended, No hepatosplenomegaly. No guarding or rebound. 7.MSK: Normocephalic/Atraumatic, Extremities w/o deformity or ttp No cyanosis or clubbing, Normal movement of all extremities 8.Skin: Warm, Dry. No rashes or lesions. 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 Sensation grossly intact, no focal julissa rologic deficits. 10.Psych: (AAO) x3. Appropriate mood and affect Course Vital Signs Vital signs: Vital Signs Temperature 36.7 C 09/17/21 13:59 Pulse 70 09/17/21 13:59 Respiratory Rate 18 09/17/21 13:59 Pulse Oximetry 98 09/17/21 13:59 Temperature 36.7 C 09/17/21 13:59 Temperature Source Temporal Artery Scan 09/17/21 13:59 Pulse 70 09/17/21 13:59 Respiratory Rate 18 09/17/21 13:59 Respiratory Effort 09/17/21 14:04 Respiratory Depth Normal 09/17/21 14:04 Blood Pressure Position Supine 09/17/21 13:59 Pulse Oximetry 98 09/17/21 13:59 Oxygen Delivery Method Room Air 09/17/21 13:59 Oxygen Flow Rate 0 09/17/21 13:59 Pain Level 0 09/17/21 13:59
[2021-09-17 14:23] LABS: Source Nasal/Nares
[2021-09-17] MEDS: Normal Saline 500 ML IV (14:25)
[2021-09-17 14:29] LABS: Abs Immature Grans 0.02 10^3/uL (0.0-0.06); Absolute Basophil Count 0.04 10^3/uL (0.0-0.2); Absolute Eosinophil Count 0.16 10^3/uL (0.0-0.7); Absolute Lymphocyte Count 0.93 10^3/uL (1.2-3.4); Absolute Monocyte Count 0.89 10^3/uL (0.1-0.8); Absolute Neutrophil Count 4.75 10^3/uL (1.2-6.7); Basophils % 0.6; Eosinophils % 2.4; HCT 35.5 % (40.0-50.0); HGB 11.7 g/dL (13.5-17.5); Immature Grans % 0.3; Lymphocytes % 13.7; MCH 32.6 pg (27.0-33.0); MCV 98.9 fL (80-95); MPV 10.3 fL (8.0-11.0); Monocytes % 13.1; Neutrophils % 69.9; Nucleated RBC 0 %; Platelet Count 210 10^3/uL (130-400); RBC 3.59 10^6/uL (4.36-5.78); RDW 13.2 % (11.8-14.1); RDW-SD 47.4 fL; WBC 6.79 10^3/uL (4.4-10.8)
[2021-09-17 14:30] LABS: BE (Venous) 6 mmol/L (-2-3); HCO3 (Venous) 30 mmol/L (23-28); O2 Sat (Venous) 79 %; TCO2 (Venous) 27 mmol/L (24-29); pCO2 (Venous) 47 mmHg (41-51); pH (Venous) 7.42 (7.31-7.41); pO2 (Venous) 43 mmHg
[2021-09-17 14:52] LABS: ALT 36 U/L (16-63); AST 17 U/L (15-37); Albumin 3.5 g/dL (3.4-5.0); Alkaline Phosphatase 112 U/L (46-116); Anion Gap 7.5 mmol/L (3-11); BUN 16 mg/dL (7-18); Bilirubin, Total 0.5 mg/dL (0.2-1.0); CO2 30.5 mmol/L (21.0-32.0); CREATININE 0.8 mg/dL (0.70-1.30); Calcium 8.7 mg/dL (8.5-10.1); Chloride 104 mmol/L (98-107); Glucose 113 mg/dL (74-106); NT-proBNP 740 pg/mL (<300); Potassium 3.8 mmol/L (3.5-5.1); Sodium 142 mmol/L (136-145); Total Protein 6.7 g/dL (6.4-8.2); Troponin I < 50 ng/L (<or=60)
[2021-09-17 14:56] LABS: TSH (W/Ref FT4) 1.08 uIU/mL (0.36-3.74)
[2021-09-17 15:05] LABS: COVID-19 PCR Negative (Negative)
[2021-09-17 15:12] LABS: D-Dimer 2293 ng/mlFEU (<500)
--- NOTE | 2021-09-17 15:50 | DI.CT_ITS ---
Exam(s) CT CHEST PE CTA EXAM: CT CHEST PE CTA CLINICAL HISTORY: sob, fatigue, notable elevated dimer. TECHNIQUE: Imaging Protocol: Axial CT angiography was performed with multi-slice acquisition and mu lti-planar and/or 3D reconstructions. CONTRAST MATERIAL: Intravenous: Omnipaque 350 Contrast volume:100 mL COMPARISON: CT CT ABDOMEN PELVIS W from 12/21/2018 FINDINGS: Tracheobronchial tree: Patent where visualized. Pulmonary parenchyma: There are small bilateral pleural effusions and subjacent infiltrates. These i nfiltrates may represent atelectasis or pneumonia. No architectural distortion. Pulmonary Arteries: No evidence of filling defect to suggest pulmonary emboli. Mediastinum and Delores: Non-specific mildly enlarged mediastinal lymph nodes. The esophagus is unremar kable. Visualized thyroid gland: Unremarkable. Pleura: Please see above. No pneumothorax. Heart: Cardiomegaly. No coronary artery calcifications are seen. No pericardial effusion. Aorta: Thoracic aorta non-dilated. No evidence of dissection. Atherosclerosis. Upper abdomen: Unremarkable. Soft tissues: Unremarkable. Bones: Within normal limits for the patient's age.Old left rib fractures are present. IMPRESSION: 1. No evidence of pulmonary embolism, thoracic aortic dissection or aneurysm. 2. Small bilateral pleural effusions and subjacent infiltrates. 3. Results of this exam have been verbally communicated with provider. RADIATION DOSE DELIVERED: 358.32mGy.cm Total DLP DATA REPOSITORY: All CT scans at this facility are submitted to the National Radiology Data Registry (NRDR) Dose Index Registry (DIR) with the [employer] (ACR). RADIATION OPTIMIZATION: All CT scans at this facility use at least one of these dose optimization te chniques: automated exposure control; mA and/or kV adjustment per patient size (includes targeted exa ms where dose is matched to clinical indication); or iterative reconstruction.
[2021-09-17] MEDS: Omnipaque 350 MG/ML 100 ML BTL IJ (16:01)
[2021-09-17] MEDS: Doxycycline Hyclate 100 MG, 2 CAPS/BTL PO (17:36)
== END 2021-09-17 17:30 | disposition home or self-care (01) ==
PROVIDERS: Emergency Provider Student in an Organized Health Care Education/Training Program; PCP Internal Medicine
DX: J18.9 Pneumonia, unspecified organism (principal); R06.02 Shortness of breath; R79.89 Other specified abnormal findings of blood chemistry; R07.9 Chest pain, unspecified; I10 Essential (primary) hypertension
CPT/HCPCS: 36415; 71275; 80053; 82805; 87635; 93005; 99285; 83880; 84443; 84484; 85025; 85379; 93010; 99284; J3490

== ENCOUNTER 2021-10-14 00:26 | Outpatient (CLI) | payer MEDICARE, OTHER, SELFPAY ==
--- NOTE | 2021-10-14 08:30 | DI.RAD_ITS ---
Exam(s) XR CHEST 2V PA LATERAL EXAM: XR CHEST 2V PA LATERAL CLINICAL HISTORY: COMMUNITY-ACQUIRED PNEUMONIA, J18.9 TECHNIQUE: 2D digital imaging was performed. COMPARISON: CR XR CHEST 2V PA LATERAL from 12/01/2018 FINDINGS: The heart is enlarged and the aorta tortuous, unchanged. There is mild scarring in the left lung, al so stable. No new superimposed infiltrate, effusion or pulmonary edema is seen. Osteophytes are not ed in the spine. No compression fractures. IMPRESSION: No acute abnormality. DATA REPOSITORY: RADIATION DOSE DELIVERED:
== END 2021-10-14 00:46 ==
PROVIDERS: PCP Internal Medicine; Visit Provider Internal Medicine
DX: J18.8 Other pneumonia, unspecified organism (principal); J98.4 Other disorders of lung
CPT/HCPCS: 71046

== ENCOUNTER 2022-01-03 01:52 | Outpatient (CLI) | payer MEDICARE, OTHER, SELFPAY ==
[2022-01-03 07:30] LABS: Abs Immature Grans 0.01 10^3/uL (0.0-0.06); Absolute Basophil Count 0.05 10^3/uL (0.0-0.2); Absolute Eosinophil Count 0.12 10^3/uL (0.0-0.7); Absolute Lymphocyte Count 1.43 10^3/uL (1.2-3.4); Absolute Monocyte Count 0.73 10^3/uL (0.1-0.8); Absolute Neutrophil Count 3.47 10^3/uL (1.2-6.7); Basophils % 0.9; Eosinophils % 2.1; HCT 41.8 % (40.0-50.0); HGB 13.8 g/dL (13.5-17.5); Immature Grans % 0.2; Lymphocytes % 24.6; MCH 31.9 pg (27.0-33.0); MCV 96.5 fL (80-95); MPV 10.6 fL (8.0-11.0); Monocytes % 12.6; Neutrophils % 59.6; Platelet Count 204 10^3/uL (130-400); RBC 4.33 10^6/uL (4.36-5.78); RDW 14.2 % (11.8-14.1); WBC 5.81 10^3/uL (4.4-10.8)
[2022-01-03 07:32] LABS: Bilirubin Negative (Negative); Blood Trace-intact (Negative); Clarity Clear (Clear); Glucose Negative (Negative); Ketones Negative (Negative); Leukocyte Esterase Negative (Negative); Nitrite Negative (Negative); Specific Gravity 1.025 (1.005-1.025); Urobilinogen 0.2 EU/dL (Up TO 0.2); pH 6.5 (5-8)
[2022-01-03 07:39] LABS: Bacteria Negative HPF (Negative); C & S Indicated? No; Casts Negative LPF (Negative); Crystals Negative HPF (Negative); Epithelial Cells Rare HPF (Negative); Mucus Trace (Negative); RBC 0-2 HPF (0-2); WBC Negative HPF (0-5)
[2022-01-03 07:53] LABS: Hemoglobin A1C 5.9 % (<5.7)
[2022-01-03 09:13] LABS: BUN 15 mg/dL (7-18); CREATININE 0.8 mg/dL (0.70-1.30); Calcium 8.6 mg/dL (8.5-10.1); Glucose 107 mg/dL (74-106)
[2022-01-03 09:14] LABS: ALT 37 U/L (16-63); AST 24 U/L (15-37); Albumin 3.7 g/dL (3.4-5.0); Alkaline Phosphatase 84 U/L (46-116); Anion Gap 4.6 mmol/L (3-11); Bilirubin, Total 0.9 mg/dL (0.2-1.0); CO2 33.4 mmol/L (21.0-32.0); Calculated LDL 120 mg/dL (<100); Chloride 105 mmol/L (98-107); Cholesterol 197 mg/dL (<200); HDL Cholesterol 69 mg/dL (40-60); Sodium 143 mmol/L (136-145); TSH 2.15 uIU/mL (0.36-3.74); Total Protein 6.5 g/dL (6.4-8.2); Triglyceride 40 mg/dL (<150)
[2022-01-06 06:02] LABS: Vitamin D 25 Total 30.6 ng/mL (30-100)
== END 2022-01-03 01:53 | disposition home or self-care (01) ==
LOC: LBO 01:52
PROVIDERS: PCP Internal Medicine; Visit Provider Internal Medicine
DX: I10 Essential (primary) hypertension (principal); R73.01 Impaired fasting glucose; E55.9 Vitamin D deficiency, unspecified
CPT/HCPCS: 36415; 80053; 80061; 82306; 81003; 81015; 83036; 84443; 85025

== ENCOUNTER 2022-02-13 18:38 | Outpatient (REF) | payer MEDICARE, OTHER, SELFPAY ==
[2022-02-13 13:20] LABS: Bilirubin Negative (Negative); Blood Negative (Negative); Clarity Clear (Clear); Glucose Negative (Negative); Ketones Negative (Negative); Leukocyte Esterase Negative (Negative); Nitrite Negative (Negative); Urobilinogen 0.2 EU/dL (Up TO 0.2)
== END 2022-02-13 18:39 | disposition home or self-care (01) ==
LOC: LBN 18:38
PROVIDERS: PCP Internal Medicine; Visit Provider Internal Medicine
DX: R31.9 Hematuria, unspecified (principal)
CPT/HCPCS: 81003; 87086

== ENCOUNTER 2022-06-06 09:52 | Emergency (ER) | payer MEDICARE, OTHER, SELFPAY ==
[2022-06-06 09:56] VITALS: BP 138/70; PULSE 65; RESP 18; TEMP 36.4; O2SAT 99
--- NOTE | 2022-06-06 10:20 | ED.GENADUL_ITS ---
Discharge Plan Disposition Patient Disposition: HOME Condition: Stable Discharge Details Chief Complaint: Cellulitis Clinical Impression: Inguinal hernia Primary Care Provider: Kenny Vee ED Provider: Puneet Sanchez Home Meds and New Rx's Prescriptions: No Action cholecalciferol (vitamin D3) 25 mcg (1,000 unit) capsule 25 mcg PO DAILY hydrochlorothiazide 12.5 mg tablet 12.5 mg PO DAILY Eliquis 5 mg tablet 5 mg PO BID ascorbic acid (vitamin C) 1,000 mg tablet 1 gm PO DAILY metoprolol succinate 50 mg cap,sprinkle,ER 24hr dose pack 25 mg PO ONCE PRN Label Comments: for BP > 100 terazosin 5 MG capsule 5 mg PO HS amlodipine 5 MG tablet 5 mg PO DAILY lisinopril 40 MG tablet 40 mg PO DAILY finasteride 5 MG tablet 5 mg PO HS Discharge Instructions Instructions: Inguinal Hernia (ED) Additional Instructions: Please follow-up with general surgery next week for evaluation of inguinal hernia. Please return to the emergency department for any worsening symptoms such as but not limited to worsening groin pain groin swelling, constipation vomiting abdominal distention or other abnormal symptoms Medical Decision Making 81-year-old male history of bilateral inguinal hernia status post remote repair with mesh, presents with left groin swelling over the past 1 to 2 days, denies nausea vomiting or constipation. Patient is afebrile nontoxic. Soft direct left inguinal hernia on examination, no signs of incarceration or strangulation. Lower suspicion for lymphadenopathy or malignancy. Patient be given referral to general surgery for evaluation for elective repair. Home care instructions and return precautions given HPI General Date/Time Provider Initiated Documentation: 06/06/22 10:01 . HPI Narrative: 81-year-old male history of bilateral inguinal hernias in the past presents with left groin swelling over the past 1 to 2 days mildly uncomfortable denies nausea vomiting or constipation. Had remote bilateral repairs in the past, bilateral mesh Related Data Home Medications Medication Instructions Recorded Confirmed amlodipine 5 mg tablet 5 mg PO DAILY 05/17/15 06/06/22 finasteride 5 mg tablet 5 mg PO HS 05/17/15 06/06/22 lisinopril 40 mg tablet 40 mg PO DAILY 05/17/15 06/06/22 terazosin 5 mg capsule 5 mg PO HS 05/17/15 06/06/22 apixaban 5 mg tablet (Eliquis) 5 mg PO BID 02/16/19 06/06/22 ascorbic acid (vitamin C) 1,000 mg 1 gm PO DAILY 02/16/19 06/06/22 tablet hydrochlorothiazide 12.5 mg tablet 12.5 mg PO DAILY 02/16/19 06/06/22 metoprolol succinate 50 mg capsule 25 mg PO ONCE PRN 02/16/19 09/17/21 sprinkle, ext. release 24 hr cholecalciferol (vitamin D3) 25 25 mcg PO DAILY 04/24/20 06/06/22 mcg (1,000 unit) capsule Allergies Allergy/AdvReac Type Severity Reaction Status Date / Time No Known Allergies Allergy Unverified 06/06/22 10:00 General Stated Complaint: Cellulitis EYAD: 3 Review of Systems Narrative: Review of Systems Constitutional: negative Eyes: negative ENT: negative Cardiovascular: negative Respiratory: negative Gastrointestinal: negative : Groin swelling Musculoskeletal: negative Skin: negative Neurologic: negative Psych: negative PFSH All Active Problems (Updated 06/06/22 @ 10:23 by Puneet Sanchez MD) Inguinal hernia (Acute) Plantar fasciitis of left foot (Acute) Right knee DJD (Acute) Muscle wasting and atrophy, not elsewhere classified, right lower leg (Acute) Internal derangement of right knee (Chronic) Migraine (Chronic) BPH (benign prostatic hyperplasia) (Chronic) Hypertension (Chronic) Paroxysmal atrial fibrillation (Chronic) Medical History Hx of fracture of clavicle left Surgical History Dupuytrens contracture April 2015 Hemothorax on left Laceration of right forearm Left lateral epicondylitis Rupture of right Achilles tendon Status post hernia repair bilateral inguinal repairs April 2015 Social History Smoking/Tobacco Use Status: Never Smoking risk assessment performed?: Yes Alcohol Intake: current Alcohol Intake frequency: 0-2 drinks per day Alcohol type: beer and wine Drug use: Never Substance use type: does not use Details: alcohol: t-1, one glass wine Current gender identity: male Do you feel safe at home: Yes Do you feel safe in your relationship?: Yes Exam Narrative Exam Narrative: Physical Examination General: alert, awake, cooperative, resting comfortably, no acute distress HEENT: normocephalic, atraumatic; PERRL, EOM intact, conjunctiva normal; no nasal discharge; moist mucous membranes, oral and pharyngeal mucosa normal, tolerating secretions Neck: supple, trachea midline; full ROM Chest: normal to inspection Respiratory: normal respiratory effort, speaking in full sentences, clear to auscultation, no wheezing, rales or rhonchi Cardiac: regular rate, regular rhythm, S1S2 intact, no murmurs rubs or gallops GI: abdomen soft, non-tender, non-distended; no palpable mass or hepatosplenomegaly : Left direct inguinal hernia soft, no overlying skin changes Skin: no lesions, rashes or trauma appreciated Neuro: AAOx3, normal speech, moving all extremities Psych: Appropriate mood and affect Course Vital Signs Vital signs: Vital Signs Temperature 36.4 C L 06/06/22 09:56 Pulse 65 06/06/22 09:56 Respiratory Rate 18 06/06/22 09:56 Blood Pressure 138/70 06/06/22 09:56 Pulse Oximetry 99 06/06/22 09:56 Temperature 36.4 C L 06/06/22 09:56 Temperature Source Temporal Artery Scan 06/06/22 09:56 Pulse 65 06/06/22 09:56 Respiratory Rate 18 06/06/22 09:56 Respiratory Effort Non-Labored 06/06/22 10:00 Blood Pressure 138/70 06/06/22 09:56 Blood Pressure Position Sitting 06/06/22 09:56 Pulse Oximetry 99 06/06/22 09:56 Oxygen Delivery Method Room Air 06/06/22 09:56 Oxygen Flow Rate 0 06/06/22 09:56 PAWSS Have you Been Recently Intoxicated or Drunk Within the Last 30 days?: No Have you Ever Experienced Previous Episodes of Alcohol Withdrawal?: No Have you ever Experienced Withdrawal Seizures?: No Have you ever Experienced Delirium Tremens(DT)s?: No Have you ever undergone Alcohol Rehabilitation Treatment (i.e, inpt ot outpatient treatment programs)?: No Have you ever Experienced Blackouts?: No Have you ever Combined Alcohol with other Downers within the last 90 days?: No Have you ever Combined Alcohol with any other Substance of Abuse during the last 90 days?: No Positive Blood Alcohol level on Presentation? [PCS.BAL]: No Evidence of Increased Autonomic Activity (i.e. HR>120, tremor, sweating, agitation, nausea)?: No Result: 0
--- NOTE | 2022-06-06 13:13 | NUR.NOTE ---
Nursing Note: Pt info faxed to general surgery for follow up next week for Inguinal Hernia, Joana, ED
== END 2022-06-06 10:37 | disposition home or self-care (01) ==
PROVIDERS: Emergency Provider Emergency Medicine; PCP Internal Medicine
DX: K40.90 Unilateral inguinal hernia, without obstruction or gangrene, not specified as recurrent (principal)
CPT/HCPCS: 99281; 99284

== ENCOUNTER → 2022-06-18 13:22 | Outpatient (BNVA) | payer MEDICARE, OTHER, SELFPAY | PROVIDERS: PCP Internal Medicine; Referring Provider Internal Medicine; Visit Provider Surgery | DX: I48.91 Unspecified atrial fibrillation (principal); Z79.01 Long term (current) use of anticoagulants; Z98.890 Other specified postprocedural states; K46.9 Unspecified abdominal hernia without obstruction or gangrene | CPT/HCPCS: 99213 ==

== ENCOUNTER 2022-09-26 09:51 | Day surgery (SDC) | payer MEDICARE, OTHER, SELFPAY ==
--- NOTE | 2022-09-25 18:20 | W.ANESPRE ---
General Info Date of Service Date Performed: 09/26/22 Height: 6 ft 2 in Weight: 81.25 kg Body Mass Index (BMI): 23.0 Surgical Procedure: Operation Date: 09/26/22 12:55 Proposed Procedure Side Surgeon p Herniorrhaphy Inguinal w/Mesh Left Roshan Maynard MD Meds Allergies and Home Medications Allergies Allergy/AdvReac Type Severity Reaction Status Date / Time No Known Allergies Allergy Unverified 09/25/22 12:50 Home Medication Medication Instructions Recorded amlodipine 5 mg tablet 10 mg PO DAILY 05/17/15 finasteride 5 mg tablet 5 mg PO HS 05/17/15 lisinopril 40 mg tablet 40 mg PO DAILY 05/17/15 terazosin 5 mg capsule 5 mg PO HS 05/17/15 apixaban 5 mg tablet (Eliquis) 5 mg PO BID 02/16/19 ascorbic acid (vitamin C) 1,000 mg 1 gm PO DAILY 02/16/19 tablet hydrochlorothiazide 12.5 mg tablet 12.5 mg PO DAILY 02/16/19 cholecalciferol (vitamin D3) 25 25 mcg PO DAILY 04/24/20 mcg (1,000 unit) capsule amiodarone 200 mg tablet 1 tab PO HS 09/25/22 Current Visit Medications: Current Medications Generic Name Dose Route Start Last Admin Trade Name Freq PRN Reason Stop Dose Admin Acetaminophen 1,000 mg 09/26/22 06:00 Acetaminophen 500 Mg Tab PO 09/26/22 23:59 PREOP JERMAINE Celecoxib 200 mg 09/26/22 06:00 Celecoxib 200 Mg Cap PO 09/26/22 23:59 PREOP JERMAINE Gabapentin 600 mg 09/26/22 06:00 Gabapentin 300 Mg Cap PO 09/26/22 23:59 PREOP [facility] Ringer's Solution 1,000 mls @ 80 mls/hr 09/26/22 06:00 IV 09/26/22 23:59 INFUSION [facility] IV Miscellaneous Supplies 1 each 09/26/22 06:00 Iv Access IV 09/26/22 23:59 DIRECTED JERMAINE Sodium Chloride 0 ml 09/26/22 06:00 Normal Saline Flush 10 Ml Syr IV 09/26/22 23:59 PRN PRN Sodium Chloride 0 ml 09/26/22 06:00 Normal Saline 10 Ml Vial IJ 09/26/22 23:59 DIRECTED PRN Sterile Water 0 ml 09/26/22 06:00 Water,Injection,Sterile 10 Ml Vial IJ 09/26/22 23:59 DIRECTED PRN PFSH Active Problems Active Problems: Problem Status Onset Code Internal derangement of right knee M23.91 Paroxysmal atrial fibrillation I48.0 Hypertension I10 BPH (benign prostatic hyperplasia) N40.0 Migraine G43.909 Muscle wasting and atrophy, not elsewhere classified, right lower leg M62.561 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 Plantar fasciitis of left foot M72.2 Medical History Medical History Hx of fracture of clavicle left Surgical History Surgical History Dupuytrens contracture April 2015 Hemothorax on left Hx of total knee replacement Laceration of right forearm Left lateral epicondylitis Rupture of right Achilles tendon Status post hernia repair bilateral inguinal repairs April 2015 Tobacco Smoking/Tobacco Use Status: Never Alcohol Alcohol Intake: current Alcohol intake frequency: 0-2 drinks per day Alcohol type: beer and wine Substance Use Substance use: Never Substance use type: does not use Vital Signs and Lab Results Vital Signs Most Recent Vital Signs in EMR: Temp Pulse Resp BP Pulse Ox 36.6 C 62 16 128/60 95 09/26/22 10:14 09/26/22 10:14 09/26/22 10:14 09/26/22 10:14 09/26/22 10:14 Lab Results Blood Type / Crossmatch: No Data to Display Complete Blood Count: No Data to Display Complete Metabolic Panel: No Data to Display Liver Function Panel: No Data to Display Coagulation Panel: No Data to Display Cardiac Panel: No Data to Display Arterial Blood Gas: No Data to Display Venous Blood Gas: No Data to Display Pancreas Panel: No Data to Display Thyroid Panel: No Data to Display Infectious Disease: No Data to Display Blood Cultures: No Data to Display Toxicology Panel: No Data to Display Imaging and Studies Imaging and Studies Study information below may be from another EMR and interpreted by another provider. Please see original notes in EMR for more complete details. EKG Summary: 10/05: sinus. supravent bigem. Echocardiogram Summary: 08/05: LVEF 64%, normal WMA. severe dilation RA. mild to mod AR, mild MR. PAS 33 mmhg. Other Study Summary:: zio 9/22: mostly sinus, frequent episodes of mildy irreg narrow complex tachy, 5 runs ot VT longest at 9 beats. Anesthesia Assessment and Plan Anesthesia History Personal History: No History of Anesthesia Complications Family History: No Family History of Anesthesia Complications Exercise Tolerance Exercise Tolerance: Metabolic Equivalents>4 Pertinent Negatives Pertinent Negatives: No Symptoms of GERD and No Major Pulmonary Symptoms or Complaints Cardiac & Pulmonary Exam Cardiac Exam: Normal S1/S2 Heart Sounds Pulmonary Exam: Clear Bilateral Breath Sounds Implantable Cardiac Device Does patient have a Pacemaker or an ICD?: No Airway Exam Known Difficult Airway: No Mallampati Class: 1 Mouth Opening: Normal (> 3cm) Thyromental Distance: Greater than 3 cm Neck Range of Motion: Full ROM Neck Circumference: Normal Teeth Condition: Normal Dentition ASA Classification ASA Score: ASA 3 Emergency Case?: No NPO Status NPO Status: NPO Clears >2 hours, Solids >8 hours Anesthesia Plan Resuscitation Status: Full Code Anesthesia Technique: General Anesthesia Airway Planned: LMA Monitors Used: Standard Monitors Preoperative Comments:: 82 yo male for hernia repair. Sig PMHx: PAT/aflutter (multiple DCCV, most recent 08/18/22, amiodarone, apixaban), HTN (amlodipine, HCTZ, lisinopril), migraine, thrombophilia, never smoker, occ EtOH. ECHO: EF 64%, mod AI, mild TR, PAS 25-30 mmhg. ETT no ischemia, went into afib. Previous Anes: - LMA 5 - DCCV - prop 120. Plan: GA, preop cocktail (ordered by surgeon).
--- NOTE | 2022-09-25 20:22 | HPE_ITS ---
Assessment and Plan Assessment and plan (1) Status post hernia repair: Assessment and plan: Re-do left inguinal hernia repair today History of Present Illness History of Present Illness Chief Complaint: Inguinal hernia Narrative: He is 81 years old and has a past medical history of bilateral open herniorrhaphies with mesh.? Approximately 1 and half weeks ago, he noticed the acute onset of left-sided groin pain, and associated bulge.? It seems to be a little worse in the evening time after he has been on his feet for a while.? He is able to lay flat.? He denies any nausea, vomiting, or other signs of obstruction.? Although he does not recall the exact date of his last left-sided inguinal hernia repair, he knows that was performed prior to 2019.? Interestin gly, he has a CAT scan of the abdomen and pelvis from 2019 that shows some evidence of a left-sided inguinal hernia. Since his last visit to the office, he did require cardioversion for atrial fibrillation. He tolerated that well. PFSH All Active Problems Internal derangement of right knee (Chronic) Paroxysmal atrial fibrillation (Chronic) Hypertension (Chronic) BPH (benign prostatic hyperplasia) (Chronic) Migraine (Chronic) Muscle wasting and atrophy, not elsewhere classified, right lower leg (Acute) Right knee DJD (Acute) Plantar fasciitis of left foot (Acute) Medical History Hx of fracture of clavicle left Surgical History Dupuytrens contracture April 2015 Hemothorax on left Hx of total knee replacement Laceration of right forearm Left lateral epicondylitis Rupture of right Achilles tendon Status post hernia repair bilateral inguinal repairs April 2015 Social History Smoking/Tobacco Use Status: Never Smoking risk assessment performed?: Yes Alcohol Intake: current Alcohol Intake frequency: 0-2 drinks per day Alcohol type: beer and wine Drug use: Never Substance use type: does not use Current gender identity: male Do you feel safe at home: Yes Do you feel safe in your relationship?: Yes Meds Allergies and Home Medications Allergies Allergy/AdvReac Type Severity Reaction Status Date / Time No Known Allergies Allergy Unverified 09/25/22 12:50 Home Medications Medication Instructions Recorded Confirmed Type amlodipine 5 mg tablet 10 mg PO DAILY 05/17/15 09/26/22 History finasteride 5 mg tablet 5 mg PO HS 05/17/15 09/26/22 History lisinopril 40 mg tablet 40 mg PO DAILY 05/17/15 09/26/22 History terazosin 5 mg capsule 5 mg PO HS 05/17/15 09/26/22 History apixaban 5 mg tablet (Eliquis) 5 mg PO BID 02/16/19 09/25/22 History ascorbic acid (vitamin C) 1,000 mg 1 gm PO DAILY 02/16/19 09/26/22 History tablet hydrochlorothiazide 12.5 mg tablet 12.5 mg PO DAILY 02/16/19 09/26/22 History cholecalciferol (vitamin D3) 25 25 mcg PO DAILY 04/24/20 09/26/22 History mcg (1,000 unit) capsule amiodarone 200 mg tablet 1 tab PO HS 09/25/22 09/26/22 History Exam Narrative Exam Narrative: Physical Examination General: alert, awake, cooperative, resting comfortably, no acute distress HEENT: normocephalic, atraumatic; PERRL, EOM intact, conjunctiva normal; no nasal discharge; moist mucous membranes, oral and pharyngeal mucosa normal, tolerating secretions Neck: supple, trachea midline; full ROM Chest: normal to inspection Respiratory: normal respiratory effort, speaking in full sentences, clear to auscultation, no wheezing, rales or rhonchi Cardiac: regular rate, regular rhythm, S1S2 intact, no murmurs rubs or gallops GI: abdomen soft, non-tender, non-distended; no palpable mass or hepatosplenomegaly : Left direct inguinal hernia soft, no overlying skin changes Skin: no lesions, rashes or trauma appreciated Neuro: AAOx3, normal speech, moving all extremities Psych: Appropriate mood and affect Resp Effort & Inspection: normal respiratory effort and able to speak in complete sentences Auscultation: clear to auscultation bilaterally Cardio Rate: regular rate Rhythm: regular rhythm Heart Sounds: S1 normal and S2 normal GI Other: Reducible left-sided inguinal hernia
--- NOTE | 2022-09-25 20:25 | W.PM.DSUDISC ---
Date of service: 09/26/22 Time of Service: 14:49 Discharge Plan Disposition Patient Disposition: Home Condition: Good Discharge Details Reason For Visit: recurrent left inguianl hernia repair Attending Provider: Roshan Maynard Primary Care Provider: Kenny Vee Home Meds and New Rx's Prescriptions: New tramadol 50 mg tablet 50 mg PO Q8H PRN (Reason: pain) Qty: 9 0RF Rx Instructions: Take 1 tablet by mouth up to every 8 hours if needed for severe pain. Continued cholecalciferol (vitamin D3) 25 mcg (1,000 unit) capsule 25 mcg PO DAILY hydrochlorothiazide 12.5 mg tablet 12.5 mg PO DAILY ascorbic acid (vitamin C) 1,000 mg tablet 1 gm PO DAILY terazosin 5 MG capsule 5 mg PO HS amlodipine 5 MG tablet 10 mg PO DAILY lisinopril 40 MG tablet 40 mg PO DAILY finasteride 5 MG tablet 5 mg PO HS amiodarone 200 mg tablet 1 tab PO HS Label Comments: TAKE TWO TABLETS BY MOUTH EVERY DAY Held Eliquis 5 mg tablet 5 mg PO BID Hold Instructions: Resume on 09/27/22. Discharge Instructions Additional Instructions: 1. Resume all of your medications. 2. Okay to use tylenol and ibuprofen over the counter as needed. Use [] as needed for severe pain. 3. Heating pads and ice packs are fine to use for pain. 4. Leave bandage in place for 24 hours, then remove. 5. Shower with warm soapy water. Pat dry. Use a bandaid if needed to protect your clothing. 6. No soaking or tub baths until I see you in the office. 7. No heavy lifting until I see you in the office. 8.Call the office (or go directly to the emergency room after hours) if you notice any of the following: Develop chills (warm to touch), or if you have a thermometer and your temperature is above 101 Difficulty breathing or difficultly swallowing Persistent vomiting Any bleeding ? exceeding one tablespoon 6. Call your physician if the site where your intravenous was started becomes red, swollen, painful, and warm to touch. Stand Alone Forms: Anesthesia Discharge Inst., Yuki Rosa (DSU) Referrals: Roshan Maynard MD [ [facility] STAFF PHYSICIAN] - Activity:: Activity as Tolerated Diet:: As Tolerated Discharge Orders Discharge Orders: Discharge Order (Routine); Ordered 09/25/22 Ordered By: Roshan Maynard DS: Diagnosis Discharge Diagnosis (1) Status post hernia repair: Asessment and Plan: Tashi we repaired your left-sided inguinal hernia today. Specifically, you had a left-sided indirect inguinal hernia. I closed this down with permanent mesh plug, and reinforce the area surrounding it. I would like you to hold your apixaban 1 more night, and you can restart it on September 27. Please follow the attached discharge instructions, and we look forward to seeing you in the office for routine visit.
--- NOTE | 2022-09-25 20:27 | ROE_ITS ---
Date of service: 09/26/22 Time of Service: 16:15 Operative Note Operative Note DATE OF PROCEDURE: 09/26/22 PRE-OP DIAGNOSIS: Recurrent left inguinal hernia POST-OP DIAGNOSIS: same PROCEDURE: Re-do left inguinal hernia repair SURGEON: Roshan Maynard TRAVELING ELECTRICIAN: Ayaka Martin ANESTHESIA TYPE: General LMA/ETT Refer to Anesthesia Record ESTIMATED BLOOD LOSS: 50 PATHOLOGY: none sent COMPLICATIONS: None Patient was transported to: PACU Patient's condition: stable Implants: PerFix light plug Indications: Tashi is an 82-year-old male with a recurrent left-sided inguinal hernia. It has become progressively symptomatic over the past few months. Findings: Indirect left inguinal hernia Procedure Description: I began by confirming the correct site with the patient, he was induced with general endotracheal anesthesia. I then prepped and draped the left groin in the usual fashion. I established a generous field block using local anesthetic. I began by making an oblique incision over the left inguinal region, adjacent to the area of previous dissection.. I dissected down through the skin to the deep fascia. Next, I incised the fascia along the length of the inguinal canal to the external ring, opening the previous incision site. I carefully dissected the underlying structures. There was an obvious left-sided inguinal hernia anterior to the cord structures. I was not able to identify a discrete ilioinguinal nerve. Once this was complete, I bluntly dissected the shelving edge of the inguinal ligament down towards the pubic tubercle. Here, I encircled all cord structures with a Tamia drain. Next, I began dissecting the specific cord structures. Great care was taken to spare the vas deferens and the blood supply to the testicle. Next, I isolated the hernia sac from the other inguinal structures. I reduced it back to its normal anatomic position, through the internal ring. Although there was a suture in this area, the ring was quite lax, and I was not able to appreciate any permanent mesh in the area of the internal ring. I then used a large mesh plug to obliterate the defect at the internal ring. I fixed in place with interrupted Prolene stitches. The floor of the inguinal canal was largely scarred, and I was able to identify sutures along the shelving edge of the inguinal ligament. The integrity of the floor felt healthy, and I did not appreciate any signs of direct inguinal herniation. With the internal ring obliterated, and no more herniation, I felt this was an adequate repair. It appeared hemostatic. I then closed the anterio r portion of the fascia to reconstruct the front wall of the inguinal canal. I did this with interrupted Vicryl stitches. Once again, I irrigated the surgical field and inspected for hemostasis. Finally, I approximated the superficial fascia and the deep layers of the skin with absorbable suture. Skin was closed with running subcuticular stitch. Bandages were applied, the patient was awakened and transferred to the recovery unit.
[2022-09-26] VITALS (7 sets, daily range): BP systolic 108–128; BP diastolic 39–70; PULSE 60–72; RESP 13–19; TEMP 36.5–36.6; O2SAT 94–97; BMI 23.0
[2022-09-26] MEDS: Gabapentin 300 MG CAP 600 MG PO (10:35)
[2022-09-26] MEDS: Acetaminophen 500 MG TAB 1000 MG PO (10:35)
[2022-09-26] MEDS: Celecoxib 200 MG CAP PO (10:35)
[2022-09-26] MEDS: Lactated Ringers 1,000 ML 80 ML IV (10:47)
[2022-09-26] MEDS: ceFAZolin 2 GM/50 ML BAG IVPB (13:20)
[2022-09-26] MEDS: Bupivacaine 0.5% Pres-Free W/EPI 30 ML VIAL (14:13)
--- NOTE | 2022-09-26 14:42 | W.ANESPOSTOP ---
Postoperative Evaluation Date, Time and Location Date Performed: 09/26/22 Time Performed: 14:42 Patient Location: PACU Vital Signs Most Recent Imported Vital Signs: Most Recent Vital Signs Temp Pulse Resp BP Pulse Ox 36.6 C 62 19 108/39 L 94 09/26/22 14:27 09/26/22 14:37 09/26/22 14:37 09/26/22 14:37 09/26/22 14:37 Pain Score Most Recent Pain Score: Most Recent Pain Score Pain Level 0 09/26/22 10:14 Assessment Mental Status: Awake (Alert & Oriented to Patient Baseline) Airway and Respiratory Function: Patent airway with normal (patient baseline) respiratory exam Cardiovascular Function: Hemodynamically Stable Hydration Status: Adequately Hydrated Nausea & Vomiting: No Nausea or Vomiting Pain: Pain is tolerable per patient Peripheral Nerve Block: Patient did not receive a nerve block
== END 2022-09-26 16:15 | disposition home or self-care (01) ==
PROVIDERS: PCP Internal Medicine; Visit Provider Surgery
PROC: (CPT 49520; principal; 2022-09-26 12:45)
DX: K40.91 Unilateral inguinal hernia, without obstruction or gangrene, recurrent (principal); I48.0 Paroxysmal atrial fibrillation; Z79.01 Long term (current) use of anticoagulants
CPT/HCPCS: 49520; C1781; J0690; J1100; J2405

== ENCOUNTER → 2022-10-09 08:52 | Outpatient (BNVA) | payer MEDICARE, OTHER, SELFPAY | PROVIDERS: PCP Internal Medicine; Referring Provider Internal Medicine; Visit Provider Surgery | DX: Z48.817 Encounter for surgical aftercare following surgery on the skin and subcutaneous tissue (principal); R10.9 Unspecified abdominal pain; W10.8XXA Fall (on) (from) other stairs and steps, initial encounter ==

== ENCOUNTER 2022-12-24 13:15 | Outpatient (REF) | payer MEDICARE, OTHER, SELFPAY ==
[2022-12-24 14:47] LABS: Anion Gap 9.4 mmol/L (3-11); BUN 12 mg/dL (7-18); CO2 28.6 mmol/L (21.0-32.0); CREATININE 0.9 mg/dL (0.70-1.30); Calcium 8.7 mg/dL (8.5-10.1); Chloride 105 mmol/L (98-107); Estimated GFR 86.34 (mL/min/1.73m2); Glucose 115 mg/dL (74-106); Sodium 143 mmol/L (136-145); TSH (W/Ref FT4) 3.22 uIU/mL (0.36-3.74)
== END 2022-12-24 13:16 | disposition home or self-care (01) ==
LOC: NCHCN 13:15
PROVIDERS: PCP Internal Medicine; Visit Provider Internal Medicine
DX: I10 Essential (primary) hypertension (principal); I48.0 Paroxysmal atrial fibrillation
CPT/HCPCS: 80048; 84443

== ENCOUNTER → 2023-07-06 08:49 | Outpatient (BNVA) | payer MEDICARE, OTHER, SELFPAY | PROVIDERS: PCP Internal Medicine; Referring Provider Internal Medicine; Visit Provider Nurse Practitioner Gerontology ==

== ENCOUNTER 2023-07-06 13:29 | Outpatient (CLI) | payer MEDICARE, OTHER, SELFPAY ==
[2023-07-06 17:46] LABS: PSA, Diagnostic 0.3 ng/mL (<=6.5)
== END 2023-07-06 13:30 | disposition home or self-care (01) ==
LOC: LBO 13:29
PROVIDERS: PCP Internal Medicine; Visit Provider Nurse Practitioner Gerontology
DX: N40.1 Benign prostatic hyperplasia with lower urinary tract symptoms (principal); R35.0 Frequency of micturition
CPT/HCPCS: 36415; 51798; 99215; 84153

== ENCOUNTER → 2023-10-06 08:27 | Outpatient (BNVA) | payer MEDICARE, OTHER, SELFPAY | PROVIDERS: PCP Internal Medicine; Referring Provider Internal Medicine; Visit Provider Nurse Practitioner Gerontology | DX: N40.1 Benign prostatic hyperplasia with lower urinary tract symptoms (principal); R35.1 Nocturia | CPT/HCPCS: 99213 ==

== ENCOUNTER 2024-03-04 12:23 | Emergency (ER) | payer MEDICARE, OTHER, SELFPAY ==
--- NOTE | 2024-03-04 12:30 | DI.RAD_ITS ---
Exam(s) XR FOOT RT COMPLETE EXAM: XR FOOT RT COMPLETE CLINICAL HISTORY: R great toe injury. TECHNIQUE: 2D digital imaging was performed. Three views. COMPARISON: No exams were available for comparison FINDINGS: BONES: No acute fracture is present. No bony destructive lesion is seen. Bones appear osteopenic. S mall heel spur. JOINTS: No dislocation present. Degenerative changes. SOFT TISSUE: Normal. IMPRESSION: No acute abnormality DATA REPOSITORY: RADIATION DOSE DELIVERED:
[2024-03-04 12:32] VITALS: BP 151/59; PULSE 62; RESP 16; TEMP 36.9; O2SAT 98
--- NOTE | 2024-03-04 13:45 | ED.GENADUL_ITS ---
Discharge Plan Disposition Patient Disposition: Home Condition: Stable Discharge Details Clinical Impression: Contusion of great toe of right foot Primary Care Provider: Kenny Vee ED Provider: Christian Pichardo Home Meds and New Rx's Prescriptions: Continued cholecalciferol (vitamin D3) 25 mcg (1,000 unit) capsule 25 mcg PO DAILY hydrochlorothiazide 12.5 mg tablet 12.5 mg PO DAILY Eliquis 5 mg tablet 5 mg PO BID Hold Instructions: Resume on 09/27/22. ascorbic acid (vitamin C) 1,000 mg tablet 1 gm PO DAILY terazosin 5 mg capsule 5 mg PO QHS amlodipine 5 MG tablet 10 mg PO DAILY lisinopril 40 MG tablet 40 mg PO DAILY finasteride 5 MG tablet 5 mg PO HS amiodarone 200 mg tablet 1 tab PO HS Patient Comments: TAKE TWO TABLETS BY MOUTH EVERY DAY Discharge Instructions Instructions: Toe Injury Additional Instructions: X-ray does not reveal any fracture. We discussed wearing ricky taping as tolerated as well as a firm soled shoe. You may advance activity as tolerated. Rest, elevate, cool compresses every 2 hours for 20 minutes. Please watch for new or worsening symptoms and return to the ER for any concerns. HPI General Mode of arrival: ambulatory . Date/Time Provider Initiated Documentation: 03/04/24 12:38 . Limitations to Documentation: no limitations . Information obtained by: patient . History of Present Illness 83 year old M presents to the emergency department with the chief complaint of R great toe injury, described as moderate, with intensity rated at 4. Quality is described as aching, and is localized to the right and lower extremity. Patient reports no radiation. Patient started experiencing this day(s) (1) and it has been constant. Immobilization improves symptom(s), Movement worsens symptoms . Patient notes no other symptoms.. Patient did receive the following treatments prior to arrival, other (A single crutch, Aspercreme) Related Data Home Medications Medication Instructions Recorded Confirmed amlodipine 5 mg tablet 10 mg PO DAILY 05/17/15 10/09/22 finasteride 5 mg tablet 5 mg PO HS 05/17/15 10/09/22 lisinopril 40 mg tablet 40 mg PO DAILY 05/17/15 10/09/22 apixaban 5 mg tablet (Eliquis) 5 mg PO BID 02/16/19 10/09/22 ascorbic acid (vitamin C) 1,000 mg 1 gm PO DAILY 02/16/19 10/09/22 tablet hydrochlorothiazide 12.5 mg tablet 12.5 mg PO DAILY 02/16/19 10/09/22 cholecalciferol (vitamin D3) 25 25 mcg PO DAILY 04/24/20 10/09/22 mcg (1,000 unit) capsule amiodarone 200 mg tablet 1 tab PO HS 09/25/22 10/09/22 terazosin 5 mg capsule 5 mg PO QHS 10/06/23 Allergies Allergy/AdvReac Type Severity Reaction Status Date / Time No Known Allergies Allergy Unverified 10/06/23 08:31 General Stated Complaint: Orthopedic EYAD: 4 Review of Systems Constitutional Constitutional: Denies weakness Musculoskeletal Musculoskeletal: Denies numbness, Reports stiffness and Denies tingling Neurologic Neurologic: Denies numbness, Denies tingling and Denies weakness Exam Const General: cooperative, healthy appearing, comfortable and no acute distress Orientation: alert and awake HENMT Head: normal to inspection, normocephalic and atraumatic Mouth: moist mucous membranes Eyes Conjunctivae: conjunctivae normal Neck Neck: normal visual inspection, trachea midline and supple Resp Effort & Inspection: normal respiratory effort and able to speak in complete sentences Cardio Rate: regular rate Rhythm: regular rhythm Skin General skin exam: no rashes or lesions noted Neuro General: patient alert, patient awake, moves all extremities and no focal motor deficits Sensory Exam: no sensory deficits noted Extrem Other: Right great toe with diffuse ecchymosis, mild swelling. Diffuse mild discomfort. No obvious deformity. Skin is intact. No subungual hematoma. The remaining toes and the entire foot examination are unremarkable. Sensation intact throughout. Normal pedal pulse and capillary refill Psych Appearance: grossly normal Mental Status: mental status grossly normal Course Vital Signs Vital signs: Vital Signs Temperature 36.9 C 03/04/24 12:32 Pulse 62 03/04/24 12:32 Respiratory Rate 16 03/04/24 12:32 Blood Pressure 151/59 H 03/04/24 12:32 Pulse Oximetry 98 03/04/24 12:32 Temperature 36.9 C 03/04/24 12:32 Temperature Source Tympanic 03/04/24 12:32 Pulse 62 03/04/24 12:32 Respiratory Rate 16 03/04/24 12:32 Blood Pressure 151/59 H 03/04/24 12:32 Blood Pressure Position Supine 03/04/24 12:32 Pulse Oximetry 98 03/04/24 12:32 Oxygen Delivery Method Room Air 03/04/24 12:32 Oxygen Flow Rate 0 03/04/24 12:32 Pain Level 8 03/04/24 12:32 Comment APAP at 0500; aspercreme on at 0700 03/04/24 12:32 Medical Decision Making 83-year-old gentleman stubbed his right great toe yesterday on a step while wearing Crocs. Woke up this morning and thought that his toe may be slightly angulated, now feels as though it looks more appropriate denies any other injury. Has trialed Aspercreme which helped. Also using 1 crutch for ambulation. Will obtain x-ray to rule out any bony involvement. Right foot x-ray ordered and reviewed, no acute fracture noted. Discussed findings with patient. Patient relieved that there is no fracture. He declines ricky taping or a postop shoe. He has a second crutch at home as needed. We discussed conservative measures. No additional questions or concerns, comfortable discharge. Standard discharge and return precautions were provided. Patient understands, is agreeable to this plan, and has no additional questions or concerns upon discharge. This documentation was generated using [employer] dictation system, please disregard any oddities of phrase or misspellings. Quality:SDOH Health Related Social Needs: No Data to Display PFSH All Active Problems (Updated 03/04/24 @ 14:02 by DAYANARA Sams) Contusion of great toe of right foot (Acute) Fall (on) (from) other stairs and steps, sequela (Acute) BPH loc w urin obs/LUTS (Acute) Inguinal hernia (Acute) Internal derangement of right knee (Chronic) Paroxysmal atrial fibrillation (Chronic) Hypertension (Chronic) BPH (benign prostatic hyperplasia) (Chronic) Migraine (Chronic) Muscle wasting and atrophy, not elsewhere classified, right lower leg (Acute) Right knee DJD (Acute) Plantar fasciitis of left foot (Acute) Medical History Hx of fracture of clavicle left Surgical History Hx of total knee replacement Hemothorax on left Laceration of right forearm Rupture of right Achilles tendon Left lateral epicondylitis Dupuytrens contracture April 2015 Status post hernia repair bilateral inguinal repairs April 2015 Social History Smoking/Tobacco Use Status: Never Smoking risk assessment performed?: Yes Alcohol Intake: current Alcohol Intake frequency: 0-2 drinks per day Alcohol type: beer and wine Drug use: Never Substance use type: does not use Current gender identity: male Do you feel safe at home: Yes Do you feel safe in your relationship?: Yes
[2024-03-04 14:08] VITALS: BP 132/71; PULSE 61; RESP 18; O2SAT 96
== END 2024-03-04 14:09 | disposition home or self-care (01) ==
PROVIDERS: Emergency Provider Physician Assistant; PCP Internal Medicine
DX: S90.111A Contusion of right great toe without damage to nail, initial encounter (principal); W22.8XXA Striking against or struck by other objects, initial encounter
CPT/HCPCS: 99283; 73630

== ENCOUNTER → 2024-03-14 02:50 | Outpatient (CLI) | payer MEDICARE, OTHER, SELFPAY ==
--- NOTE | 2024-03-14 10:55 | DI.RAD_ITS ---
Exam(s) XR CHEST 2V PA LATERAL EXAM: XR CHEST 2V PA LATERAL CLINICAL HISTORY: I48.0 Paryoxysmal Afib, Z79.899 High risk med use, R06.09 FERNANDES,. TECHNIQUE: 2D digital imaging was performed. COMPARISON: CR XR CHEST 2V PA LATERAL from 10/14/2021 FINDINGS: 2 views: Mild cardiomegaly again noted. Mediastinum not widened. Right lung remains clear. Scarring in the left lung base is unchanged from 2021. No new infiltrates nor pleural effusions. IMPRESSION: No acute pulmonary findings.Left-sided scarring appears unchanged from September 2021. DATA REPOSITORY: RADIATION DOSE DELIVERED:
== END ==
PROVIDERS: PCP Internal Medicine; Visit Provider Physician Assistant Medical
DX: I48.0 Paroxysmal atrial fibrillation (principal); Z79.899 Other long term (current) drug therapy; R06.09 Other forms of dyspnea
CPT/HCPCS: 71046

== ENCOUNTER 2024-03-14 04:07 | Outpatient (CLI) | payer MEDICARE, OTHER, SELFPAY ==
[2024-03-14 12:00] LABS: ALT 23 U/L (16-63); AST 18 U/L (15-37); Albumin 3.5 g/dL (3.4-5.0); Alkaline Phosphatase 73 U/L (46-116); Anion Gap 6.3 mmol/L (3-11); BUN 12 mg/dL (7-18); Bilirubin, Total 0.71 mg/dL (0.2-1.0); CO2 30.7 mmol/L (21.0-32.0); CREATININE 0.9 mg/dL (0.70-1.30); Calcium 8.6 mg/dL (8.5-10.1); Chloride 107 mmol/L (98-107); Glucose 108 mg/dL (74-106); Sodium 144 mmol/L (136-145); TSH (W/Ref FT4) 2.41 uIU/mL (0.36-3.74); Total Protein 6.5 g/dL (6.4-8.2)
== END 2024-03-14 04:08 | disposition home or self-care (01) ==
PROVIDERS: PCP Internal Medicine; Visit Provider Physician Assistant Medical
DX: Z79.899 Other long term (current) drug therapy (principal); I48.0 Paroxysmal atrial fibrillation; R06.09 Other forms of dyspnea
CPT/HCPCS: 36415; 80053; 71046; 83735; 84443

== ENCOUNTER 2024-07-25 12:26 | Emergency (ER) | payer MEDICARE, OTHER, SELFPAY ==
[2024-07-25] VITALS (21 sets, daily range): BP systolic 136–158; BP diastolic 70–87; PULSE 54–93; RESP 11–29; TEMP 37; O2SAT 96–99
--- NOTE | 2024-07-25 12:30 | RT.EKG_ITS ---
APPROVED REPORT Exam: Resting ECG Reason for Exam: chest pain Patient Location: E HR:85 bpm ECG Measurements Heart Rate 85 AXIS LA [id number] P [id number] QRSd 114 QRS 157 QT 428 T 7 QTc 523 Conclusion Atrial flutter 85 long QT 523
--- NOTE | 2024-07-25 12:45 | DI.CT_ITS ---
Exam(s) CT RENAL COLIC WO EXAM: CT RENAL COLIC WO CLINICAL HISTORY: L CVA tenderness. TECHNIQUE: Imaging Protocol: Axial computed tomography images with coronal and sagittal reformatted images were created and reviewed. Oral: no COMPARISON: CT CT ABDOMEN PELVIS W from 12/21/2018 FINDINGS: Lung Bases: Small right pleural effusion. Cardiomegaly Liver: Normal density. No suspicious mass. Simple cyst left lobe no follow-up recommended. Gallbladder and biliary tract: No radiodense calculus or biliary dilation. Pancreas: Normal density. No abnormal calcifications or inflammatory process. Spleen: Normal. Kidneys: Normal size, contour and axis. No radiodense stones. No obstructive uropathy. Left parapel padmaja cysts. No suspicious masses seen. Adrenal glands: No masses seen. Lymph nodes: Within normal limits. Vasculature: Abdominal aorta non-dilated. Soft tissues: Unremarkable. Bladder: No wall thickening. No mass or calculi. Bowel: No obstruction or bowel wall thickening. Diverticulosis of the sigmoid. Appendix normal. Peritoneal cavity: No ascites. No focal collection. No mesenteric inflammatory response. Reproductive organs: The prostate is enlarged and impresses on the base of the bladder. Bones: Degenerative changes in the lumbar spine. IMPRESSION: Cardiomegaly and small right pleural effusion. No acute abnormality in the abdomen or pelvis. RADIATION DOSE DELIVERED: 469.29mGy.cm Total DLP 469.29mGy.cm Total DLP DATA REPOSITORY: All CT scans at this facility are submitted to the National Radiology Data Registry (NRDR) Dose Index Registry (DIR) with the [employer] (ACR). RADIATION OPTIMIZATION: All CT scans at this facility use at least one of these dose optimization te chniques: automated exposure control; mA and/or kV adjustment per patient size (includes targeted exa ms where dose is matched to clinical indication); or iterative reconstruction.
--- NOTE | 2024-07-25 13:01 | W.ED.GENAD ---
Discharge Plan Disposition Patient Disposition: Home Condition: Stable Discharge Details Clinical Impression: Chest pain of uncertain etiology Primary Care Provider: Scotty Mortensen ED Provider: Jose Simmons Home Meds and New Rx's Prescriptions: Continued cholecalciferol (vitamin D3) 25 mcg (1,000 unit) capsule 25 mcg PO DAILY hydrochlorothiazide 12.5 mg tablet 12.5 mg PO DAILY Eliquis 5 mg tablet 5 mg PO BID ascorbic acid (vitamin C) 1,000 mg tablet 1 gm PO DAILY terazosin 5 mg capsule 5 mg PO QHS amlodipine 5 MG tablet 10 mg PO DAILY lisinopril 40 MG tablet 40 mg PO DAILY finasteride 5 MG tablet 5 mg PO HS amiodarone 200 mg tablet 1 tab PO HS Patient Comments: TAKE TWO TABLETS BY MOUTH EVERY DAY Discharge Instructions Instructions: Chest Pain, Adult ED Additional Instructions: You were seen in the emergency department for your chest/back pain of uncertain etiology, your cardiac workup is negative, there is no evidence of kidney stone, there is no signs of major infection. You are in well rate controlled atrial fibrillation. Please follow-up with electrophysiology at [facility] [place] [facility] for persistent atrial fibrillation, please return to the emergency department for any tachyarrhythmias, further chest pain, fever, nausea, shortness of breath or weakness or other emergent concerns. Referrals: Kenny Vee [ [facility] STAFF PHYSICIAN] - Discharge Data Discharge Date/Time-TO BE ENTERED AT DEPARTURE: 07/25/24 15:24 HPI General Date/Time Provider Initiated Documentation: 07/25/24 12:43. HPI Narrative: 83 year-old male presents to ED today by POV/ambulating with his with a chief complaint of some L back/axillary pain that disturbed his sleep last night- and he notes he has been in more persistent atrial fibrillation with onset noted last night. Quality described as posterior/axillary back pain, worse with movement, no radiation to crushing chest pain, exertional onset, shortness of breath, dizziness/near syncope, diaphoresis. Severity is described as 3-4 intermittently/10. Palliating factors include nothing specific attempted. Provoking factors include nothing specific. Patient is anticoagulated on Eliquis. Related Data Home Medications ?Medication ?Instructions ?Recorded ?Confirmed amlodipine 5 mg tablet 10 mg PO DAILY 05/17/15 07/25/24 finasteride 5 mg tablet 5 mg PO HS 05/17/15 07/25/24 lisinopril 40 mg tablet 40 mg PO DAILY 05/17/15 07/25/24 apixaban 5 mg tablet (Eliquis) 5 mg PO BID 02/16/19 07/25/24 ascorbic acid (vitamin C) 1,000 mg 1 gm PO DAILY 02/16/19 07/25/24 tablet hydrochlorothiazide 12.5 mg tablet 12.5 mg PO DAILY 02/16/19 07/25/24 cholecalciferol (vitamin D3) 25 25 mcg PO DAILY 04/24/20 07/25/24 mcg (1,000 unit) capsule amiodarone 200 mg tablet 1 tab PO HS 09/25/22 07/25/24 terazosin 5 mg capsule 5 mg PO QHS 10/06/23 07/25/24 Allergies Allergy/AdvReac Type Severity Reaction Status Date / Time No Known Allergies Allergy Verified 07/25/24 12:41 General Stated Complaint: Chest Pain EYAD: 2 Review of Systems All systems reviewed & are unremarkable except as noted in HPI and below Exam Narrative Exam Narrative: GENERAL APPEARANCE: Well-nourished, non-toxic, awake and alert, atraumatic, no acute distress. SKIN: Warm, pink, dry, intact, without rashes/lesions/ulcerations. HEAD: Normocephalic, atraumatic, normal hair distribution for gender/age. EYES: Normal conjunctiva, no exudates on lids/lashes. ENT: Nares patent, no circumoral cyanosis, no facial swelling NECK: Supple, trachea midline, painless cervical ROM. LUNGS/CHEST: Lungs CTA bilaterally-no rhonchi or rales at bases, non-labored respirations, normal A/P diameter, symmetrical expansion, no chest wall deformity, left posterior lower thoracic tenderness without crepitus HEART (CV/PV): Irregular rate and rhythm without murmur, no peripheral edema, no JVD. ABDOMEN: Soft, non-distended, no guarding, no tenderness. MSK: Normal ROM, no swelling/deformity to bilateral UEs or LEs, moving all extremities without weakness, no cyanosis, spine midline without tenderness, normal curvature. NEURO: Mental Status AAOx4 - alert to person, place, time, events No facial droop, no forehead involvement. Motor: No focal weakness - strength 5/5 in bilateral UEs and LEs, proximal and distal, symmetric. Sensory: sensation intact to light touch globally. Gait normal: patient ambulated without ataxia into ED room. PSYCH: euthymic, cooperative, pleasant, appropriate speech Course Vital Signs Vital signs: Vital Signs Temperature 37.0 C 07/25/24 12:36 Pulse 93 H 07/25/24 12:36 Respiratory Rate 16 07/25/24 12:36 Blood Pressure 136/72 07/25/24 12:36 Pulse Oximetry 98 07/25/24 12:36 Temperature 37.0 C 07/25/24 12:36 Pulse 93 H 07/25/24 12:36 Respiratory Rate 16 07/25/24 12:36 Blood Pressure 136/72 07/25/24 12:36 Pulse Oximetry 98 07/25/24 12:36 Pain Level 3 07/25/24 12:36 Medical Decision Making This dictation utilizes [id number] dictation software and may contain unedited grammatical errors. 83 year-old male presents to ED today by POV/ambulating with his with a chief complaint of some L back/axillary pain that disturbed his sleep last night- and he notes he has been in more persistent atrial fibrillation with onset noted last night. Quality described as posterior/axillary back pain, worse with movement, no radiation to crushing chest pain, exertional onset, shortness of breath, dizziness/near syncope, diaphoresis. Severity is described as 3-4 intermittently/10. Palliating factors include nothing specific attempted. Provoking factors include nothing specific. Patients' medical history: Paroxysmal atrial fibrillation, hypertension, BPH, migraine, degenerative joint disease. Family and social history: Eats well, exercises, endorses a lot of housework lately. Pertinent exam findings / vital signs include mild tenderness left thoracic back lateral to the spine, L CVA tenderness, no anterior pleuritic chest pain irregular rate and rhythm of atrial fibrillation, benign abdomen, nontoxic, lungs CTA without respiratory distress. Differential / pathologies of concern include thoracic back spasm, acute coronary syndrome, muscle strain, costochondritis, kidney stone. Diagnostic studies of: -CBC, CMP, serial troponin, BNP, lipase, UA, CT renal, EKG. -CBC shows no actionable abnormality, chronic leukopenia, mild anemia -CMP shows no actionable abnormality -Serial troponins negative -BNP mildly elevated -Lipase within normal limits -UA is benign -His CT renal study shows no acute abnormality of kidney does show small right pleural effusion Interventions of: -None recommend Tylenol and a trial of Voltaren for likely thoracic back strain. ED Course/Assessment/Plan: 83-year-old male presents with left lower thoracic back pain, sometimes radiating to axilla and has been noticing he is in more persistent A-fib with chronic A-fib on Eliquis and amiodarone, patient denies history of kidney stones and this was ruled out by CT renal study, as a small right pleural effusion this is likely unrelated to the area of pain, acute coronary syndrome ruled out, counseled on treatment for thoracic back strain and strict return criteria for any changes to this chest pain with dizziness, near syncope, sweating and shortness of breath on exertion. Findings not consistent with acute coronary syndrome, renal stone, pneumonia or respiratory infection, respiratory distress, PE unlikely and he is on Eliquis. Disposition of chest pain of uncertain etiology. Patient verbalized understanding of the plan and return to ED criteria and engaged in shared decision making. Medical Records Medical records reviewed: Yes I reviewed the patient's medical records. Imaging Data Radiologic Study: Attestation: I personally reviewed and interpreted this imaging study as follows: Imaging: CT Scan Radiologist's impression: EXAM: CT RENAL COLIC WO CLINICAL HISTORY: L CVA tenderness. TECHNIQUE: Imaging Protocol: Axial computed tomography images with coronal and sagittal reformatted images were created and reviewed. Oral: no COMPARISON: CT CT ABDOMEN PELVIS W from 12/21/2018 FINDINGS: Lung Bases: Small right pleural effusion. Cardiomegaly Liver: Normal density. No suspicious mass. Simple cyst left lobe no follow-up recommended. Gallbladder and biliary tract: No radiodense calculus or biliary dilation. Pancreas: Normal density. No abnormal calcifications or inflammatory process. Spleen: Normal. Kidneys: Normal size, contour and axis. No radiodense stones. No obstructive uropathy. Left parapelvic cysts. No suspicious masses seen. Adrenal glands: No masses seen. Lymph nodes: Within normal limits. Vasculature: Abdominal aorta non-dilated. Soft tissues: Unremarkable. Bladder: No wall thickening. No mass or calculi. Bowel: No obstruction or bowel wall thickening. Diverticulosis of the sigmoid. Appendix normal. Peritoneal cavity: No ascites. No focal collection. No mesenteric inflammatory response. Reproductive organs: The prostate is enlarged and impresses on the base of the bladder. Bones: Degenerative changes in the lumbar spine. IMPRESSION: Cardiomegaly and small right pleural effusion. No acute abnormality in the abdomen or pelvis. Lab Data Lab results reviewed: Yes I reviewed the patient's lab results. Labs: Laboratory Tests Range/Units 07/25/24 07/25/24 07/25/24 13:00 13:55 14:09 WBC (4.4-10.8) 10^3/uL 4.28 L RBC (4.36-5.78) 10^6/uL 3.78 L Hgb (13.5-17.5) g/dL 12.4 L Hct (40.0-50.0) % 36.9 L MCV (80-95) fL 98 H MCH (27.0-33.0) pg 32.8 MCHC (32.0-36.0) % 33.6 RDW (11.8-14.1) % 14.3 H Plt Count (130-400) 10^3/uL 197 MPV (8.0-11.0) fL 10.1 Immature Gran % % 0.2 Neutrophils % % 60.5 Lymphocytes % % 22.0 Monocytes % % 15.0 Eosinophils % % 1.4 Basophils % % 0.9 Nucleated RBC % (0.0-0.3) % 0.0 Absolute Neutrophils (1.2-6.7) 10^3/uL 2.59 Absolute Lymphocytes (1.2-3.4) 10^3/uL 0.94 L Absolute Monocytes (0.1-0.8) 10^3/uL 0.64 Absolute Eosinophils (0.0-0.7) 10^3/uL 0.06 Absolute Basophils (0.0-0.2) 10^3/uL 0.04 Sodium (136-145) mmol/L 144 Potassium (3.5-5.1) mmol/L 4.1 Chloride (98-107) mmol/L 105 Carbon Dioxide (21.0-32.0) mmol/L 29.7 Anion Gap (3-11) mmol/L 9.3 BUN (7-18) mg/dL 14 Creatinine (0.70-1.30) mg/dL 0.9 Est GFR (CKD-EPI 2020) (mL/min/1.73m2) 85.80 Glucose (74-106) mg/dL 101 Calcium (8.5-10.1) mg/dL 9.0 Magnesium (1.8-2.4) mg/dL 2.1 Total Bilirubin (0.2-1.0) mg/dL 1.03 H AST (15-37) U/L 18 ALT (16-63) U/L 24 Alkaline Phosphatase (46-116) U/L 91 Troponin I (<or=76) ng/L 7 9 NT-Pro-B Natriuret Pep (<300) pg/mL 650 H Total Protein (6.4-8.2) g/dL 7.1 Albumin (3.4-5.0) g/dL 3.7 Lipase (16-77) U/L 21 Urine Color (Yellow) Yellow Urine Clarity (Clear) Clear Urine pH (5-8) 7.0 Ur Specific [place] (1.005-1.025) 1.020 Urine Protein (Neg-Trace) mg/dL Negative Urine Ketones (Negative) mg/dL 15 H Urine Blood (Negative) Negative Urine Nitrite (Negative) Negative Urine Bilirubin (Negative) Negative Urine Urobilinogen (Up to 0.2) mg/dL 0.2 Ur Leukocyte Esterase (Negative) Negative Urine Glucose (Negative) mg/dL Negative Quality:SDOH Health Related Social Needs: No Data to Display PFSH All Active Problems (Updated 07/25/24 @ 15:03 by DAYANARA Bates) Chest pain of uncertain etiology (Acute) Fall (on) (from) other stairs and steps, sequela (Acute) BPH loc w urin obs/LUTS (Acute) Inguinal hernia (Acute) Internal derangement of right knee (Chronic) Paroxysmal atrial fibrillation (Chronic) Hypertension (Chronic) BPH (benign prostatic hyperplasia) (Chronic) Migraine (Chronic) Muscle wasting and atrophy, not elsewhere classified, right lower leg (Acute) Right knee DJD (Acute) Plantar fasciitis of left foot (Acute) Medical History Hx of fracture of clavicle left Surgical History Hx of total knee replacement Hemothorax on left Laceration of right forearm Rupture of right Achilles tendon Left lateral epicondylitis Dupuytrens contracture April 2015 Status post hernia repair bilateral inguinal repairs April 2015 Social History Smoking/Tobacco Use Status: Never Smoking risk assessment performed?: Yes Alcohol Intake: current Alcohol Intake frequency: 0-2 drinks per day Alcohol type: beer and wine Drug use: Never Substance use type: does not use Current gender identity: male Do you feel safe at home: Yes Do you feel safe in your relationship?: Yes
[2024-07-25 13:08] LABS: Abs Immature Grans 0.01 10^3/uL (0.0-0.06); Absolute Basophil Count 0.04 10^3/uL (0.0-0.2); Absolute Eosinophil Count 0.06 10^3/uL (0.0-0.7); Absolute Lymphocyte Count 0.94 10^3/uL (1.2-3.4); Absolute Monocyte Count 0.64 10^3/uL (0.1-0.8); Absolute Neutrophil Count 2.59 10^3/uL (1.2-6.7); Basophils % 0.9 %; Eosinophils % 1.4 %; HCT 36.9 % (40.0-50.0); HGB 12.4 g/dL (13.5-17.5); Immature Grans % 0.2 %; MCH 32.8 pg (27.0-33.0); MCHC 33.6 % (32.0-36.0); MCV 98 fL (80-95); MPV 10.1 fL (8.0-11.0); Neutrophils % 60.5 %; Platelet Count 197 10^3/uL (130-400); RBC 3.78 10^6/uL (4.36-5.78); RDW 14.3 % (11.8-14.1); RDW-SD 51.4 fL; WBC 4.28 10^3/uL (4.4-10.8)
[2024-07-25 13:26] LABS: ALT 24 U/L (16-63); AST 18 U/L (15-37); Albumin 3.7 g/dL (3.4-5.0); Alkaline Phosphatase 91 U/L (46-116); Anion Gap 9.3 mmol/L (3-11); BUN 14 mg/dL (7-18); Bilirubin, Total 1.03 mg/dL (0.2-1.0); CO2 29.7 mmol/L (21.0-32.0); CREATININE 0.9 mg/dL (0.70-1.30); Chloride 105 mmol/L (98-107); Glucose 101 mg/dL (74-106); Lipase 21 U/L (16-77); Magnesium 2.1 mg/dL (1.8-2.4); NT-proBNP 650 pg/mL (<300); Potassium 4.1 mmol/L (3.5-5.1); Sodium 144 mmol/L (136-145); Total Protein 7.1 g/dL (6.4-8.2); Troponin I 7 ng/L (<or=76)
[2024-07-25 14:09] LABS: Bilirubin Negative (Negative); Blood Negative (Negative); Clarity Clear (Clear); Glucose Negative (Negative); Ketones 15 mg/dL (Negative); Leukocyte Esterase Negative (Negative); Nitrite Negative (Negative); Urobilinogen 0.2 mg/dL (Up to 0.2)
[2024-07-25] MEDS: Lidocaine 5% Patch 1 PATCH TP (14:19)
[2024-07-25] MEDS: Acetaminophen 500 MG TAB 1000 MG PO (14:19)
[2024-07-25 14:35] LABS: Troponin I 9 ng/L (<or=76)
== END 2024-07-25 15:24 | disposition home or self-care (01) ==
PROVIDERS: Emergency Provider Physician Assistant; PCP Family Medicine
DX: R07.9 Chest pain, unspecified (principal); I48.0 Paroxysmal atrial fibrillation; I10 Essential (primary) hypertension; Z79.01 Long term (current) use of anticoagulants
CPT/HCPCS: 80053; 83690; 93005; 99285; 74176; 81003; 83735; 83880; 84484; 85025; 93010; 99284

== ENCOUNTER → 2024-10-27 13:12 | Outpatient (BNVA) | payer MEDICARE, OTHER, SELFPAY | PROVIDERS: PCP Family Medicine; Referring Provider Family Medicine; Visit Provider Podiatrist | DX: L60.3 Nail dystrophy (principal); B35.1 Tinea unguium | CPT/HCPCS: 99214 ==

== ENCOUNTER 2024-12-26 12:31 | Emergency (ER) | payer MEDICARE, OTHER, SELFPAY ==
--- NOTE | 2024-12-26 12:30 | RT.EKG_ITS ---
APPROVED REPORT Exam: Resting ECG Reason for Exam: tachycardia Patient Location: E HR:53 bpm ECG Measurements Heart Rate 53 AXIS NV 210 P -4 QRSd 121 QRS 126 QT 492 T 43 QTc 462 Conclusion Sinus bradycardia...rate< 60 Nonspecific intraventricular conduction delay...QRSd >115mS, not LBBB/RBBB
[2024-12-26 12:43] VITALS: BP 160/76; PULSE 56; RESP 20; TEMP 36.6; O2SAT 94
[2024-12-26 12:49] VITALS: BP 160/76; PULSE 56; RESP 20; TEMP 36.6; O2SAT 94
--- NOTE | 2024-12-26 13:15 | DI.CT_ITS ---
Exam(s) CT BRAIN NECK CTA EXAM: CT BRAIN NECK CTA CLINICAL HISTORY: WAN post cardioversion. TECHNIQUE: Imaging Protocol: Axial CT angiography was performed with multi-slice acquisition and mu lti-planar and/or 3D reconstructions. CONTRAST MATERIAL: Intravenous: Omnipaque 350 Contrast volume:75 mL FINDINGS: CTA Neck W: Aortic arch anatomy: The aortic arch anatomy is conventional and there is no significant stenosis at the origin of the great vessels off of the aortic arch. No intimal flap evident. Anterior circulation: Both common carotid arteries ascend with normal luminal diameters. At the level the carotid bulbs and proximal internal carotid arteries there is minimal plaque without hemodynamically significant stenosis evident. Internal carotid arteries in the upper neck appear unremarkable as well as in the skull base-carotid canals. Posterior circulation: Both vertebral arteries originate in conventional fashion off of the subclavian arteries and there is no obvious stenosis at the origin of the vertebral arteries. Both vertebral arteries exhibit normal luminal diameters within the foramen transversarium. Normal diameters. No intraluminal thrombus nor dissection evident. Both vertebral arteries contribute to the formation of the basilar artery at the skull base. OTHER: No evidence of acute hematomas in the neck nor other significant incidental findings in soft t issues of the neck. CTA Brain W: Anterior circulation: Both internal carotid arteries are patent in the skull base-carotid canals as well as within the cave rnous sinuses. The supraclinoid aspects of the ICAs are patent. Both A1 segments are patent as are the anterior cer ebral arteries and there is no evidence of aneurysm at the level of the anterior communicating artery . Both middle cerebral arteries are patent with no evidence of significant stenosis nor intraluminal th rombus. There also no aneurysms of these vessels. Posterior circulation: The basilar artery ascends in the midline. Distally it gives off patent bilateral superior cerebella r arteries. Above this level the basilar artery terminates as patent bilateral posterior cerebral arteries. There is no evidence of aneurysm at the tip of the basilar artery nor elsewhere in the [id number] is. CT BRAIN: There is no evidence of intracranial hemorrhage, mass effect, or shift of midline structures. There are no extra-axial fluid collections. Ventricles are not enlarged or shifted. There are no ring enh ancing lesions in the brain and no abnormal meningeal enhancement. There is symmetrical periventricular hypodensity consistent with chronic small vessel disease. No ev idence of acute infarct. IMPRESSION: 1. Patent carotid arteries in the neck. No hemodynamically significant stenosis. 2. Patent vertebral arteries. 3. Patent intracranial arteries. 4. See separate chest CTA report Called by myself to ER 12/26/2024 at 2:40 p.m. RADIATION DOSE DELIVERED: 2,178.89mGy.cm Total DLP DATA REPOSITORY: All CT scans at this facility are submitted to the National Radiology Data Registry (NRDR) Dose Index Registry (DIR) with the [employer] (ACR). RADIATION OPTIMIZATION: All CT scans at this facility use at least one of these dose optimization te chniques: automated exposure control; mA and/or kV adjustment per patient size (includes targeted exa ms where dose is matched to clinical indication); or iterative reconstruction.
--- NOTE | 2024-12-26 13:26 | DI.CT_ITS ---
Exam(s) CT CHEST PE CTA EXAM: CT CHEST PE CTA CLINICAL HISTORY: shortness of breath post cardioversion. TECHNIQUE: Imaging Protocol: CT angiography of the chest was performed using pulmonary embolus patricia col. Multi planar reconstructions were performed. CONTRAST MATERIAL: Intravenous: Omnipaque 350 Contrast volume: 75 cc COMPARISON: CT CT CHEST PE CTA from 09/17/2021 FINDINGS: CHEST: PULMONARY ARTERIES: There are no intraluminal filling defects to suggest acute pulmonary emboli. LUNGS: There is mild infiltrate in the right lower lobe posterior basal segment and a lesser amount o f infiltrate also evident in the posterior basal segment of the left lower lobe. There is no pleural effusion on the left side. There is a small pleural effusion on the right side.. MEDIASTINUM: No evidence of sternal fracture or mediastinal hematoma. xVisualized thyroid unremarkab le.No hilar nor mediastinal adenopathy. No axillary adenopathy. CARDIAC: Cardiomegaly. No pericardial effusion. Diameter of the ascending thoracic aorta is within normal limits. No obvious dissection in the arch evident. There is no significant shift of the inte rventricular septum. PARTIALLY VISUALIZED UPPERMOST ABDOMEN: No obvious findings OSSEOUS: No significant osseous lesions.. IMPRESSION: 1. No evidence of acute pulmonary emboli. 2. There is infiltrate in the posterior basal segments of both lower lobes. There is a small pleural effusion on the right side. 3. Cardiomegaly. No pericardial effusion. No obvious aortic dissection. No evidence of mediastinal hematoma. RADIATION DOSE DELIVERED: 65.45mGy.cm Total DLP DATA REPOSITORY: All CT scans at this facility are submitted to the National Radiology Data Registry (NRDR) Dose Index Registry (DIR) with the [employer] (ACR). RADIATION OPTIMIZATION: All CT scans at this facility use at least one of these dose optimization te chniques: automated exposure control; mA and/or kV adjustment per patient size (includes targeted exa ms where dose is matched to clinical indication); or iterative reconstruction.
[2024-12-26 13:48] LABS: Abs Immature Grans 0.01 10^3/uL (0.0-0.06); Absolute Basophil Count 0.05 10^3/uL (0.0-0.2); Absolute Eosinophil Count 0.06 10^3/uL (0.0-0.7); Absolute Lymphocyte Count 0.79 10^3/uL (1.2-3.4); Absolute Monocyte Count 0.74 10^3/uL (0.1-0.8); Absolute Neutrophil Count 4.72 10^3/uL (1.2-6.7); Basophils % 0.8 %; Eosinophils % 0.9 %; HCT 34.4 % (40.0-50.0); HGB 11.2 g/dL (13.5-17.5); Immature Grans % 0.2 %; Lymphocytes % 12.4 %; MCH 30.9 pg (27.0-33.0); MCHC 32.6 % (32.0-36.0); MCV 95 fL (80-95); MPV 10.8 fL (8.0-11.0); Monocytes % 11.6 %; Neutrophils % 74.1 %; Platelet Count 195 10^3/uL (130-400); RBC 3.62 10^6/uL (4.36-5.78); RDW 14.6 % (11.8-14.1); RDW-SD 50.9 fL; WBC 6.37 10^3/uL (4.4-10.8)
[2024-12-26] MEDS: Omnipaque 350 MG/ML 100 ML BTL IJ (13:55)
[2024-12-26] MEDS: Omnipaque 350 MG/ML 50 ML BTL IJ (13:56)
[2024-12-26] MEDS: Normal Saline - Diluent 50 ML VIAL IJ ×2 (13:57→13:58)
[2024-12-26 14:20] LABS: ALT 26 U/L (16-63); AST 17 U/L (15-37); Albumin 3.7 g/dL (3.4-5.0); Alkaline Phosphatase 105 U/L (46-116); Anion Gap 7.5 mmol/L (3-11); BUN 12 mg/dL (7-18); CO2 30.5 mmol/L (21.0-32.0); CREATININE 0.9 mg/dL (0.70-1.30); Chloride 106 mmol/L (98-107); Estimated GFR 85.27 (mL/min/1.73m2); Glucose 102 mg/dL (74-106); NT-proBNP 634 pg/mL (<300); Potassium 3.9 mmol/L (3.5-5.1); Sodium 144 mmol/L (136-145); TSH (W/Ref FT4) 2.73 uIU/mL (0.36-3.74); Troponin I 9 ng/L (<or=76)
[2024-12-26 15:21] LABS: Troponin I 10 ng/L (<or=76)
[2024-12-26 15:22] VITALS: RESP 18
--- NOTE | 2024-12-26 15:42 | ED.GENADUL_ITS ---
Discharge Plan Disposition Patient Disposition: Home Condition: Stable Discharge Details Clinical Impression: Pneumonia, Headache Primary Care Provider: Scotty Mortensen ED Provider: Diana Hill Home Meds and New Rx's Prescriptions: New cefuroxime axetil 500 mg tablet 500 mg PO BID Qty: 10 0RF doxycycline hyclate 100 mg capsule 100 mg PO BID Qty: 10 0RF prednisone 20 mg tablet 40 mg PO DAILY Qty: 6 0RF Continued cholecalciferol (vitamin D3) 25 mcg (1,000 unit) capsule 25 mcg PO DAILY hydrochlorothiazide 12.5 mg tablet 12.5 mg PO DAILY Eliquis 5 mg tablet 5 mg PO BID ascorbic acid (vitamin C) 1,000 mg tablet 1 gm PO DAILY terazosin 5 mg capsule 5 mg PO QHS ketoconazole 2 % cream 1 applic topical DAILY Qty: 120 6RF Rx Instructions: Apply to toenails once daily amlodipine 5 MG tablet 10 mg PO DAILY lisinopril 40 MG tablet 40 mg PO DAILY finasteride 5 MG tablet 5 mg PO HS amiodarone 200 mg tablet 1 tab PO HS Patient Comments: TAKE TWO TABLETS BY MOUTH EVERY DAY Discharge Instructions Instructions: Community-Acquired Pneumonia, Adult (DC) Additional Instructions: Please follow-up with your primary care physician tomorrow, take antibiotics and prednisone as prescribed and also writing for an inhaler 2 puffs every 4-6 hours as needed for cough, wheeze, shortness of breath Please return earlier should you have any new or worsening complaints Referrals: Scotty Mortensen MD [Primary Care Provider] - 1 day HPI General Date/Time Provider Initiated Documentation: 12/26/24 13:06 . HPI Narrative: 84-year-old male with hypertension, hypoxia, headache, and dyspnea since last Thursday. Underwent cardioversion at [facility] last Thursday, tolerated well. Pulse within normal limits. Reports nocturnal headaches and dyspnea, improving in the morning. No weakness, dizziness, respiratory symptoms, fever, chills, urinary complaints, speech or sensation changes. No history of coagulopathy. Consistently taking Eliquis and amiodarone. Related Data Home Medications ?Medication ?Instructions ?Recorded ?Confirmed amlodipine 5 mg tablet 10 mg PO DAILY 05/17/15 12/26/24 finasteride 5 mg tablet 5 mg PO HS 05/17/15 12/26/24 lisinopril 40 mg tablet 40 mg PO DAILY 05/17/15 12/26/24 apixaban 5 mg tablet (Eliquis) 5 mg PO BID 02/16/19 12/26/24 ascorbic acid (vitamin C) 1,000 mg 1 gm PO DAILY 02/16/19 12/26/24 tablet hydrochlorothiazide 12.5 mg tablet 12.5 mg PO DAILY 02/16/19 12/26/24 cholecalciferol (vitamin D3) 25 25 mcg PO DAILY 04/24/20 12/26/24 mcg (1,000 unit) capsule amiodarone 200 mg tablet 1 tab PO HS 09/25/22 12/26/24 terazosin 5 mg capsule 5 mg PO QHS 10/06/23 12/26/24 ketoconazole 2 % topical cream 1 applic topical DAILY #120 grams 10/27/24 12/26/24 cefuroxime axetil 500 mg tablet 500 mg PO BID #10 tabs 12/26/24 doxycycline hyclate 100 mg capsule 100 mg PO BID #10 caps 12/26/24 prednisone 20 mg tablet 40 mg (2 x 20 mg) PO DAILY #6 tabs 12/26/24 Previous Rx's ?Medication ?Instructions ?Recorded ketoconazole 2 % topical cream 1 applic topical DAILY #120 grams 10/27/24 cefuroxime axetil 500 mg tablet 500 mg PO BID #10 tabs 12/26/24 doxycycline hyclate 100 mg capsule 100 mg PO BID #10 caps 12/26/24 prednisone 20 mg tablet 40 mg (2 x 20 mg) PO DAILY #6 tabs 12/26/24 Allergies Allergy/AdvReac Type Severity Reaction Status Date / Time No Known Allergies Allergy Verified 12/26/24 12:50 General Stated Complaint: SOB EYAD: 3 Exam Narrative Exam Narrative: Patient is alert and oriented he has crackles at bases of lungs send in no acute distress, left peripheral edema 2+ right 1+, nontender neurovascularly intact no abdominal tenderness speaking complete sentences sinus bradycardia no respiratory distress Course Vital Signs Vital signs: Vital Signs Temperature 36.6 C 12/26/24 12:43 Pulse 56 L 12/26/24 12:43 Respiratory Rate 20 12/26/24 12:43 Blood Pressure 160/76 H 12/26/24 12:43 Pulse Oximetry 94 12/26/24 12:43 Temperature 36.6 C 12/26/24 12:49 Pulse 56 L 12/26/24 12:49 Respiratory Rate 18 12/26/24 15:22 Respiratory Effort Normal, Non-Labored 12/26/24 15:22 Respiratory Depth Normal 12/26/24 15:22 Respiratory Pattern Normal 12/26/24 15:22 Blood Pressure 160/76 H 12/26/24 12:49 Blood Pressure Position Sitting 12/26/24 12:49 Pulse Oximetry 94 12/26/24 12:49 Oxygen Delivery Method Room Air 12/26/24 12:49 Oxygen Flow Rate 0 12/26/24 12:49 Lab/Test Results Lab/Test Results: Laboratory Tests Range/Units 12/26/24 12/26/24 12/26/24 13:40 13:40 13:40 WBC (4.4-10.8) 10^3/uL 6.37 RBC (4.36-5.78) 10^6/uL 3.62 L Hgb (13.5-17.5) g/dL 11.2 L Hct (40.0-50.0) % 34.4 L MCV (80-95) fL 95 MCH (27.0-33.0) pg 30.9 MCHC (32.0-36.0) % 32.6 RDW (11.8-14.1) % 14.6 H Plt Count (130-400) 10^3/uL 195 MPV (8.0-11.0) fL 10.8 Immature Gran % % 0.2 Neutrophils % % 74.1 Lymphocytes % % 12.4 Monocytes % % 11.6 Eosinophils % % 0.9 Basophils % % 0.8 Nucleated RBC % (0.0-0.3) % 0.0 Absolute Neutrophils (1.2-6.7) 10^3/uL 4.72 Absolute Lymphocytes (1.2-3.4) 10^3/uL 0.79 L Absolute Monocytes (0.1-0.8) 10^3/uL 0.74 Absolute Eosinophils (0.0-0.7) 10^3/uL 0.06 Absolute Basophils (0.0-0.2) 10^3/uL 0.05 Sodium (136-145) mmol/L 144 Potassium (3.5-5.1) mmol/L 3.9 Chloride (98-107) mmol/L 106 Carbon Dioxide (21.0-32.0) mmol/L 30.5 Anion Gap (3-11) mmol/L 7.5 BUN (7-18) mg/dL 12 Creatinine (0.70-1.30) mg/dL 0.9 Est GFR (CKD-EPI 2020) (mL/min/1.73m2) 85.27 Glucose (74-106) mg/dL 102 Calcium (8.5-10.1) mg/dL 9.0 Magnesium (1.8-2.4) mg/dL 2.0 Total Bilirubin (0.2-1.0) mg/dL 1.0 AST (15-37) U/L 17 ALT (16-63) U/L 26 Alkaline Phosphatase (46-116) U/L 105 Troponin I (<or=76) ng/L 9 Cancelled NT-Pro-B Natriuret Pep (<300) pg/mL 634 H Total Protein (6.4-8.2) g/dL 7.0 Albumin (3.4-5.0) g/dL 3.7 TSH (0.36-3.74) uIU/mL 2.73 Cancelled Range/Units 12/26/24 14:40 WBC (4.4-10.8) 10^3/uL RBC (4.36-5.78) 10^6/uL Hgb (13.5-17.5) g/dL Hct (40.0-50.0) % MCV (80-95) fL MCH (27.0-33.0) pg MCHC (32.0-36.0) % RDW (11.8-14.1) % Plt Count (130-400) 10^3/uL MPV (8.0-11.0) fL Immature Gran % % Neutrophils % % Lymphocytes % % Monocytes % % Eosinophils % % Basophils % % Nucleated RBC % (0.0-0.3) % Absolute Neutrophils (1.2-6.7) 10^3/uL Absolute Lymphocytes (1.2-3.4) 10^3/uL Absolute Monocytes (0.1-0.8) 10^3/uL Absolute Eosinophils (0.0-0.7) 10^3/uL Absolute Basophils (0.0-0.2) 10^3/uL Sodium (136-145) mmol/L Potassium (3.5-5.1) mmol/L Chloride (98-107) mmol/L Carbon Dioxide (21.0-32.0) mmol/L Anion Gap (3-11) mmol/L BUN (7-18) mg/dL Creatinine (0.70-1.30) mg/dL Est GFR (CKD-EPI 2020) (mL/min/1.73m2) Glucose (74-106) mg/dL Calcium (8.5-10.1) mg/dL Magnesium (1.8-2.4) mg/dL Total Bilirubin (0.2-1.0) mg/dL AST (15-37) U/L ALT (16-63) U/L Alkaline Phosphatase (46-116) U/L Troponin I (<or=76) ng/L 10 NT-Pro-B Natriuret Pep (<300) pg/mL Total Protein (6.4-8.2) g/dL Albumin (3.4-5.0) g/dL TSH (0.36-3.74) uIU/mL Medical Decision Making Initial Assessment: 84-year-old male presenting with elevated blood pressure, hypoxia, headache, and shortness of breath. Status post cardioversion at [facility] on Thursday of last week, tolerated well. Pulse has been within normal limits. Denies weakness, dizziness, respiratory symptoms, fever, chills, urinary complaints, speech or sensation changes. Denies history of coagulopathy. Took Eliquis consistently with cardioversion, still on amiodarone. ED Course: - CT head reviewed, no acute process, no significant sinus abnormalities noted. -I performed ambulatory trial in the room, patient does not desat below 95% has mild increased work of breathing but is not tachycardic and is in no respiratory distress and stable for discharge home on cefuroxime and doxycycline to cover atypicals - Patient ambulated with a very steady gait. - Use inhaler, 2 puffs every 4-6 hours as needed for cough, wheeze, shortness of breath. - Take antibiotics and prednisone as prescribed. Patient is very concerned about his blood pressure will need to list to be rechecked by his primary care physician in the outpatient setting Final Assessment: Patient is stable for discharge. CT head shows no acute process. Use inhaler as needed, take antibiotics and prednisone as prescribed. Clinical Impression: - Hypertension - Hypoxia - Headache - Dyspnea Disposition: - Discharge - Follow-Up: PCP tomorrow [facility] Components Evaluation: - Number of Differential Diagnoses or Management Options: Hypertension, Hypoxia, Headache, Dyspnea - Amount and Complexity of Data Reviewed: CT head reviewed - Risk of Complication and Morbidity or Mortality: Elevated blood pressure, hypoxia, headache, shortness of breath Quality:SDOH Health Related Social Needs: No Data to Display PFSH All Active Problems (Updated 12/26/24 @ 15:20 by DAYANARA Barker) Headache (Acute) Pneumonia (Acute) Dystrophia unguium (Acute) Onychomycosis (Acute) Fall (on) (from) other stairs and steps, sequela (Acute) BPH loc w urin obs/LUTS (Acute) Inguinal hernia (Acute) Internal derangement of right knee (Chronic) Paroxysmal atrial fibrillation (Chronic) Hypertension (Chronic) BPH (benign prostatic hyperplasia) (Chronic) Migraine (Chronic) Muscle wasting and atrophy, not elsewhere classified, right lower leg (Acute) Right knee DJD (Acute) Plantar fasciitis of left foot (Acute) Medical History Hx of fracture of clavicle left Surgical History Hx of total knee replacement Hemothorax on left Laceration of right forearm Rupture of right Achilles tendon Left lateral epicondylitis Dupuytrens contracture April 2015 Status post hernia repair bilateral inguinal repairs April 2015 Social History Smoking/Tobacco Use Status: Never Smoking risk assessment performed?: Yes Alcohol Intake: current Alcohol Intake frequency: 0-2 drinks per day Alcohol type: beer and wine Drug use: Never Substance use type: does not use Current gender identity: male Do you feel safe at home: Yes Do you feel safe in your relationship?: Yes PAWSS Have you Been Recently Intoxicated or Drunk Within the Last 30 days?: No Have you Ever Experienced Previous Episodes of Alcohol Withdrawal?: No Have you ever Experienced Withdrawal Seizures?: No Have you ever Experienced Delirium Tremens(DT)s?: No Have you ever undergone Alcohol Rehabilitation Treatment (i.e, inpt ot outpatient treatment programs)?: No Have you ever Experienced Blackouts?: No Have you ever Combined Alcohol with other Downers within the last 90 days?: No Have you ever Combined Alcohol with any other Substance of Abuse during the last 90 days?: No Positive Blood Alcohol level on Presentation? [PCS.BAL]: No Evidence of Increased Autonomic Activity (i.e. HR>120, tremor, sweating, agitation, nausea)?: No Result: 0
[2024-12-26] MEDS: Albuterol HFA 8 GM 60 PUFF INH IH (15:46)
[2024-12-26 15:48] VITALS: BP 170/53; PULSE 54; RESP 18; O2SAT 95
== END 2024-12-26 15:52 | disposition home or self-care (01) ==
PROVIDERS: Emergency Provider Physician Assistant; PCP Family Medicine
DX: J18.9 Pneumonia, unspecified organism (principal); R51.9 Headache, unspecified; R00.1 Bradycardia, unspecified; I10 Essential (primary) hypertension
CPT/HCPCS: 70496; 70498; 71275; 80053; 80151; 93005; 99285; 83735; 83880; 84443; 84484; 85025; 93010; 99284; J3490; Q9967